=== PATIENT | male | born 1955 | race Caucasian/White ===

== ENCOUNTER 2020-01-14 12:09 | Outpatient (REF) | payer MEDICARE, SELFPAY | END 2020-01-14 12:10 | disposition home or self-care (01) | LOC: HO.LAB 12:09 | PROVIDERS: PCP Internal Medicine Medical Oncology; Visit Provider Internal Medicine | DX: Z20.828 Contact with and (suspected) exposure to other viral communicable diseases (principal) | CPT/HCPCS: C9803; U0003 ==

== ENCOUNTER 2020-02-11 11:25 | Outpatient (REF) | payer MEDICARE, SELFPAY ==
[2020-02-11 12:48] LABS: Glucose Urine UA NEG (NEG); Leukocyte Esterase Urine NEG (NEG); Nitrite Urine NEG (NEG); Urine Blood NEG (NEG); Urine Ketones NEG (NEG); Urine Protein NEG (NEG-TRACE)
[2020-02-11 12:49] LABS: Appearance Urine CLEAR; Color Urine YELLOW
== END 2020-02-11 11:26 | disposition home or self-care (01) ==
LOC: HO.LAB 11:25
PROVIDERS: PCP Internal Medicine Medical Oncology; Visit Provider Internal Medicine Medical Oncology
DX: N40.0 Benign prostatic hyperplasia without lower urinary tract symptoms (principal); R35.0 Frequency of micturition
CPT/HCPCS: 81003; 87086

== ENCOUNTER 2020-03-09 08:32 | Outpatient (REF) | payer MEDICARE, SELFPAY ==
[2020-03-09 10:00] LABS: MANUAL DIFF FLAG NO
[2020-03-09 10:05] LABS: Basophils Percent Auto 0.4 % (0-2); Eosinophils Absolute Auto 0.2 X10*3/uL (0.0-0.4); Eosinophils Percent Auto 3.2 % (0-4); Hematocrit 42.4 % (42-52); Hemoglobin 14.4 g/dl (14.0-18.0); Lymphocytes Absolute Auto 1.6 X10*3/uL (1.2-4.9); Lymphocytes Percent Auto 31.8 % (20-40); Mean Corpuscular Hemoglobin 31.4 pg (27.0-33.0); Mean Corpuscular Volume 92.4 fL (80-98); Mean Platelet Volume 11.6 fL (9.4-12.4); Monocytes Absolute Auto 0.3 X10*3/uL (0.1-1.2); Monocytes Percent Auto 5.6 % (2-11); Platelet Count 177 X10*3/uL (160-400); Red Blood Count 4.59 X10*6/uL (4.60-5.80); Red Cell Distribution Width 12.6 % (11.0-16.0)
[2020-03-09 10:46] LABS: Alanine Aminotransferase 22 U/L (0-40); Albumin Level 4.2 g/dL (3.5-5.0); Alkaline Phosphatase 62 U/L (39-117); Anion Gap 13 (12-20); Aspartate Amino Transferase 24 U/L (5-37); Bilirubin Total 1.1 mg/dL (0.0-1.0); Blood Urea Nitrogen 19 mg/dL (9-16); Calcium 8.8 mg/dL (8.4-10.2); Carbon Dioxide 27 mmol/L (22-29); Chloride 103 mmol/L (96-108); Cholesterol 207 mg/dL; Estimated Glomerular Filt Rate > 60; Glucose Fasting 87 mg/dL (60-99); HDL Cholesterol 39 mg/dL; LDL Cholesterol Calculated 132 mg/dl; Sodium 139 mmol/L (135-145); Total Protein 7.1 g/dL (6.5-8.0); Triglycerides 184 mg/dL
[2020-03-09 11:06] LABS: Prostate Specific Antigen 1.62 ng/mL (<0.05-4.0); Vitamin D 25-OH Total 30.8 ng/mL (>30)
== END 2020-03-09 08:33 | disposition home or self-care (01) ==
LOC: HO.10HDL 08:32
PROVIDERS: Visit Provider Internal Medicine Medical Oncology
DX: Z00.00 Encounter for general adult medical examination without abnormal findings (principal); E78.5 Hyperlipidemia, unspecified; Z12.5 Encounter for screening for malignant neoplasm of prostate
CPT/HCPCS: 36415; 80053; 80061; 82306; 84153; 85025

== ENCOUNTER → 2020-06-14 11:16 | Outpatient (BNVA) | payer MEDICARE, SELFPAY | PROVIDERS: PCP Internal Medicine Medical Oncology; Visit Provider Urology | DX: N52.01 Erectile dysfunction due to arterial insufficiency (principal); N48.6 Induration penis plastica | CPT/HCPCS: 99212 ==

== ENCOUNTER 2020-09-27 07:31 | Outpatient (REF) | payer MEDICARE, SELFPAY | END 2020-09-27 07:32 | disposition home or self-care (01) | LOC: HO.LAB 07:31 | PROVIDERS: PCP Internal Medicine Medical Oncology; Visit Provider Internal Medicine | DX: Z20.822 Contact with and (suspected) exposure to COVID-19 (principal) | CPT/HCPCS: C9803; U0003; U0005 ==

== ENCOUNTER 2021-02-23 08:06 | Outpatient (REF) | payer MEDICARE, SELFPAY ==
[2021-02-23 08:52] LABS: COVID-19 Test Negative (Negative)
== END 2021-02-23 08:07 | disposition home or self-care (01) ==
LOC: HO.LAB 08:06
PROVIDERS: Visit Provider Internal Medicine
DX: Z20.822 Contact with and (suspected) exposure to COVID-19 (principal)
CPT/HCPCS: 87635; C9803

== ENCOUNTER 2021-02-23 09:00 | Outpatient (REF) | payer MEDICARE, SELFPAY ==
[2021-02-23 10:19] LABS: MANUAL DIFF FLAG NO
[2021-02-23 10:35] LABS: Basophils Percent Auto 0.4 % (0-2); Eosinophils Absolute Auto 0.2 X10*3/uL (0.0-0.4); Eosinophils Percent Auto 3.7 % (0-4); Hematocrit 42.9 % (42.0-52.0); Hemoglobin 14.3 g/dl (14.0-18.0); Imm Gran Abs Auto 0.01 X10*3/uL (0.00-0.03); Imm Gran Pct Auto 0.2 % (0.0-0.4); Lymphocytes Absolute Auto 1.8 X10*3/uL (1.2-4.9); Lymphocytes Percent Auto 36.1 % (20-40); Mean Corpuscular HGB Conc 33.3 g/dl (31.0-36.0); Mean Corpuscular Hemoglobin 30.8 pg (27.0-33.0); Mean Corpuscular Volume 92.5 fL (80.0-98.0); Mean Platelet Volume 10.8 fL (9.4-12.4); Monocytes Absolute Auto 0.4 X10*3/uL (0.1-1.2); Monocytes Percent Auto 7.3 % (2-11); Neutrophils Absolute Auto 2.7 x10*3/uL (2.0-8.3); Neutrophils Percent Auto 52.3 % (45-73); Platelet Count 169 X10*3/uL (160-400); Red Blood Count 4.64 X10*6/uL (4.60-5.80); Red Cell Distribution Width 12.5 % (11.0-16.0); White Blood Count 5.1 X10*3/uL (4.8-10.8)
[2021-02-23 11:10] LABS: Alanine Aminotransferase 45 U/L (0-40); Albumin Level 3.9 g/dL (3.5-5.0); Alkaline Phosphatase 58 U/L (39-117); Anion Gap 10 (12-20); Aspartate Amino Transferase 34 U/L (5-37); Bilirubin Total 1.1 mg/dL (0.0-1.0); Blood Urea Nitrogen 11 mg/dL (9-16); Calcium 9.3 mg/dL (8.4-10.2); Carbon Dioxide 30 mmol/L (22-29); Chloride 103 mmol/L (96-108); Cholesterol 210 mg/dL; Estimated Glomerular Filt Rate > 60; Glucose Fasting 89 mg/dL (60-99); HDL Cholesterol 33 mg/dL; LDL Cholesterol Calculated 135 mg/dl; Potassium 4.5 mmol/L (3.3-5.1); Sodium 138 mmol/L (135-145); Total Protein 7.1 g/dL (6.5-8.0); Triglycerides 210 mg/dL
[2021-02-23 11:20] LABS: Prostate Specific Antigen 1.92 ng/mL (<0.05-4.0)
== END 2021-02-23 09:01 | disposition home or self-care (01) ==
LOC: HO.10HDL 09:00
PROVIDERS: Visit Provider Internal Medicine Medical Oncology
DX: E66.3 Overweight (principal); N40.0 Benign prostatic hyperplasia without lower urinary tract symptoms; E78.5 Hyperlipidemia, unspecified; Z12.5 Encounter for screening for malignant neoplasm of prostate
CPT/HCPCS: 36415; 80053; 80061; 84153; 85025

== ENCOUNTER 2022-05-04 09:42 | Outpatient (REF) | payer MEDICARE, SELFPAY ==
[2022-05-04 10:34] LABS: MANUAL DIFF FLAG NO
[2022-05-04 10:42] LABS: Basophils Percent Auto 0.6 % (0-2); Eosinophils Absolute Auto 0.2 X10*3/uL (0.0-0.4); Eosinophils Percent Auto 3.3 % (0-4); Hematocrit 41.5 % (42.0-52.0); Hemoglobin 14.3 g/dl (14.0-18.0); Imm Gran Abs Auto 0.01 X10*3/uL (0.00-0.03); Imm Gran Pct Auto 0.2 % (0.0-0.4); Lymphocytes Absolute Auto 1.7 X10*3/uL (1.2-4.9); Mean Corpuscular HGB Conc 34.5 g/dl (31.0-36.0); Mean Corpuscular Hemoglobin 31.1 pg (27.0-33.0); Mean Corpuscular Volume 90.2 fL (80.0-98.0); Mean Platelet Volume 10.3 fL (9.4-12.4); Monocytes Absolute Auto 0.4 X10*3/uL (0.1-1.2); Monocytes Percent Auto 6.4 % (2-11); Neutrophils Absolute Auto 3.1 x10*3/uL (2.0-8.3); Neutrophils Percent Auto 57.5 % (45-73); Platelet Count 188 X10*3/uL (160-400); Red Cell Distribution Width 12.6 % (11.0-16.0); White Blood Count 5.4 X10*3/uL (4.8-10.8)
[2022-05-04 11:29] LABS: Alanine Aminotransferase 27 U/L (0-40); Alkaline Phosphatase 67 U/L (39-117); Anion Gap 11 (12-20); Aspartate Amino Transferase 24 U/L (5-37); Bilirubin Total 1.3 mg/dL (0.0-1.0); Blood Urea Nitrogen 14 mg/dL (9-16); Calcium 8.8 mg/dL (8.4-10.2); Carbon Dioxide 28 mmol/L (22-29); Chloride 103 mmol/L (96-108); Cholesterol 216 mg/dL; Estimated Glomerular Filt Rate > 60; Glucose Fasting 87 mg/dL (60-99); HDL Cholesterol 34 mg/dL; LDL Cholesterol Calculated 147 mg/dl; Potassium 4.2 mmol/L (3.3-5.1); Sodium 138 mmol/L (135-145); Total Protein 6.9 g/dL (6.5-8.0); Triglycerides 175 mg/dL
[2022-05-04 11:34] LABS: Prostate Specific Antigen 2.32 ng/mL (<0.05-4.0)
== END 2022-05-04 09:43 | disposition home or self-care (01) ==
LOC: HO.10HDL 09:42
PROVIDERS: Visit Provider Internal Medicine Medical Oncology
DX: Z12.5 Encounter for screening for malignant neoplasm of prostate (principal); E66.3 Overweight; N40.0 Benign prostatic hyperplasia without lower urinary tract symptoms; E78.5 Hyperlipidemia, unspecified
CPT/HCPCS: 36415; 80053; 80061; 84153; 85025

== ENCOUNTER 2022-05-14 08:08 | Outpatient (REF) | payer MEDICARE, SELFPAY ==
--- NOTE | ~2022-05-14 | XR_ITS ---
EXAMINATION: X-ray thoracic spine X-ray lumbar spine CLINICAL INFORMATION: Pain, history of falls. COMPARISON: None. TECHNIQUE: Thoracic spine 4 views. Lumbar spine 3 views.. FINDINGS: Thoracic spine: The upper thoracic vertebral bodies are obscured on the lateral projection by overlapping densities. In the visualized thoracic spine, the sagittal alignment is maintained. Mild dextroconvex curvature. Vertebral body heights are maintained. No acute significant vertebral compression deformities evident by x-ray.. Bones appear osteopenic.. Multilevel degeneration in the thoracic spine. No suspicious findings in the visualized lung. Lumbar spine: Mild rightward curvature. Sagittal alignment is maintained. Vertebral body heights are maintained. No acute compression deformity seen. Moderate-severe L5-S1 disc degeneration. Endplate spurring at multiple levels in the lumbar spine. Multilevel facet degeneration. SI joints are intact. Small calcific density projected over the right upper quadrant, may be related to bowel contents. The right renal calculus cannot be excluded. XR/XR lumbar spine 2-3V IMPRESSION: Thoracic spine: 1. Upper thoracic vertebral bodies obscured on the lateral projection. 2. No evidence of significant acute compression deformities of the thoracic spine. 3. Multilevel mild thoracic degenerative changes. 4. Osteopenia limits evaluation. 5. Further evaluation with CT or MRI as clinically warranted. Lumbar spine: No evidence of acute compression deformities. Osteopenia limits evaluation. Lumbar spondylosis. L5-S1 moderate-severe disc degeneration. Further evaluation with MRI as clinically warranted.
--- NOTE | ~2022-05-14 | XR_ITS ---
EXAMINATION: X-ray thoracic spine X-ray lumbar spine CLINICAL INFORMATION: Pain, history of falls. COMPARISON: None. TECHNIQUE: Thoracic spine 4 views. Lumbar spine 3 views.. FINDINGS: Thoracic spine: The upper thoracic vertebral bodies are obscured on the lateral projection by overlapping densities. In the visualized thoracic spine, the sagittal alignment is maintained. Mild dextroconvex curvature. Vertebral body heights are maintained. No acute significant vertebral compression deformities evident by x-ray.. Bones appear osteopenic.. Multilevel degeneration in the thoracic spine. No suspicious findings in the visualized lung. Lumbar spine: Mild rightward curvature. Sagittal alignment is maintained. Vertebral body heights are maintained. No acute compression deformity seen. Moderate-severe L5-S1 disc degeneration. Endplate spurring at multiple levels in the lumbar spine. Multilevel facet degeneration. SI joints are intact. Small calcific density projected over the right upper quadrant, may be related to bowel contents. The right renal calculus cannot be excluded. XR/XR thoracic spine 2V IMPRESSION: Thoracic spine: 1. Upper thoracic vertebral bodies obscured on the lateral projection. 2. No evidence of significant acute compression deformities of the thoracic spine. 3. Multilevel mild thoracic degenerative changes. 4. Osteopenia limits evaluation. 5. Further evaluation with CT or MRI as clinically warranted. Lumbar spine: No evidence of acute compression deformities. Osteopenia limits evaluation. Lumbar spondylosis. L5-S1 moderate-severe disc degeneration. Further evaluation with MRI as clinically warranted.
== END 2022-05-14 08:09 | disposition home or self-care (01) ==
LOC: HO.XRAY 08:08
PROVIDERS: PCP Internal Medicine Medical Oncology; Visit Provider Internal Medicine Medical Oncology
DX: M54.50 Low back pain, unspecified (principal); M54.6 Pain in thoracic spine
CPT/HCPCS: 72070; 72100

== ENCOUNTER 2022-12-24 17:01 | Outpatient (REF) | payer MEDICARE, SELFPAY | END 2022-12-24 17:02 | disposition home or self-care (01) | LOC: HO.LNP 17:01 | PROVIDERS: Visit Provider Internal Medicine Medical Oncology | DX: R07.0 Pain in throat (principal) | CPT/HCPCS: 87070 ==

== ENCOUNTER 2023-02-01 08:31 | Outpatient (REF) | payer MEDICARE, SELFPAY ==
--- NOTE | ~2023-02-01 | MR_ITS ---
EXAMINATION: MR BRAIN WITHOUT CONTRAST CLINICAL INFORMATION: Memory impairment. COMPARISON: Brain MRI dated 07/18/2016. TECHNIQUE: Multiplanar, multisequence imaging of the brain was performed without contrast. FINDINGS: No diffusion abnormalities are identified to suggest an acute or subacute infarct. No mass effect or midline shift is seen. Very mild chronic white matter microangiopathic changes again noted. There is enbr-cw-hjtqoeyi generalized brain parenchymal volume loss with concordant ex vacuo prominence of the ventricles, slightly progressed from prior imaging. No extra-axial fluid collections are seen. The brainstem and cerebellum are normal. The gradient refocused acquisition demonstrates no pathologic magnetic susceptibility artifact to indicate underlying acute or chronic blood products. The craniovertebral junction, marrow signal, and midline structures are normal. The major intracranial flow voids at the level of the [place] are preserved. The dural venous sinus flow voids are maintained. The mastoid air cells and paranasal sinuses are well aerated. MR/MR head/brain wo con IMPRESSION: Jbrm-wq-igpkhncu generalized brain parenchymal volume loss, slightly progressed from prior imaging with stable mild chronic white matter microangiopathic changes. Otherwise, no acute process.
== END 2023-02-01 08:32 | disposition home or self-care (01) ==
LOC: HO.MRI 08:31
PROVIDERS: PCP Internal Medicine Medical Oncology; Visit Provider Psychiatry & Neurology Neurology
DX: G31.84 Mild cognitive impairment of uncertain or unknown etiology (principal)
CPT/HCPCS: 70551

== ENCOUNTER → 2023-04-30 08:59 | Outpatient (REF) | payer MEDICARE, SELFPAY | LOC: HO.SL 08:59 | PROVIDERS: Visit Provider Registered Nurse | DX: G31.84 Mild cognitive impairment of uncertain or unknown etiology (principal); R06.83 Snoring | CPT/HCPCS: 95806 ==

== ENCOUNTER → 2023-04-30 19:00 | Outpatient (BNV) | payer MEDICARE, SELFPAY | PROVIDERS: Visit Provider Internal Medicine | DX: R06.83 Snoring (principal) | CPT/HCPCS: 95806 ==

== ENCOUNTER 2023-05-24 08:46 | Outpatient (REF) | payer MEDICARE, SELFPAY ==
[2023-05-24 09:01] LABS: MANUAL DIFF FLAG NO
[2023-05-24 10:13] LABS: Basophils Percent Auto 0.4 % (0-2); Eosinophils Absolute Auto 0.2 X10*3/uL (0.0-0.4); Eosinophils Percent Auto 3.9 % (0-4); Hematocrit 42.5 % (42.0-52.0); Hemoglobin 14.7 g/dl (14.0-18.0); Imm Gran Abs Auto 0.01 X10*3/uL (0.00-0.03); Imm Gran Pct Auto 0.2 % (0.0-0.4); Lymphocytes Absolute Auto 1.8 X10*3/uL (1.2-4.9); Lymphocytes Percent Auto 33.6 % (20-40); Mean Corpuscular HGB Conc 34.6 g/dl (31.0-36.0); Mean Corpuscular Hemoglobin 31.4 pg (27.0-33.0); Mean Corpuscular Volume 90.8 fL (80.0-98.0); Mean Platelet Volume 10.6 fL (9.4-12.4); Monocytes Absolute Auto 0.3 X10*3/uL (0.1-1.2); Monocytes Percent Auto 5.6 % (2-11); Neutrophils Percent Auto 56.3 % (45-73); Platelet Count 180 X10*3/uL (160-400); Red Blood Count 4.68 X10*6/uL (4.60-5.80); Red Cell Distribution Width 12.9 % (11.0-16.0); White Blood Count 5.3 X10*3/uL (4.8-10.8)
[2023-05-24 10:58] LABS: Prostate Specific Antigen 2.42 ng/mL (<0.05-4.0)
[2023-05-24 12:05] LABS: Alanine Aminotransferase 18 U/L (0-40); Albumin Level 3.9 g/dL (3.5-5.0); Alkaline Phosphatase 58 U/L (39-117); Anion Gap 11 (12-20); Aspartate Amino Transferase 20 U/L (5-37); Blood Urea Nitrogen 14 mg/dL (9-16); Carbon Dioxide 27 mmol/L (22-29); Chloride 106 mmol/L (96-108); Cholesterol 188 mg/dL (<200); Estimated Glomerular Filt Rate > 60; Glucose Fasting 87 mg/dL (60-99); HDL Cholesterol 34 mg/dL (>40); LDL Cholesterol Calculated 122 mg/dL (<100); Sodium 140 mmol/L (135-145); Total Protein 7.2 g/dL (6.5-8.0); Triglycerides 162 mg/dL (<150)
== END 2023-05-24 08:47 | disposition home or self-care (01) ==
LOC: HO.LAB 08:46
PROVIDERS: PCP Internal Medicine Medical Oncology; Visit Provider Internal Medicine Medical Oncology
DX: Z00.00 Encounter for general adult medical examination without abnormal findings (principal); Z12.5 Encounter for screening for malignant neoplasm of prostate; N40.0 Benign prostatic hyperplasia without lower urinary tract symptoms; E78.5 Hyperlipidemia, unspecified
CPT/HCPCS: 36415; 80053; 80061; 84153; 85025

== ENCOUNTER 2023-09-17 14:48 | Outpatient (AMB) | payer MEDICARE, SELFPAY ==
--- NOTE | 2023-09-17 15:07 | A.OFFVIS_ITS ---
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 He denies any inciting event and gradually noted the lump develop. He occasionally has some minor discomfort associated with the lump. The lump does reduce in size when in the supine position. Does note the lump to increase in size with lifting and straining. He denies nausea, vomiting, fever, chills, diarrhea, or constipation. He denies a previous history of hernia surgery. [facility] Medical History Hx of Lyme disease Peyronie's disease Surgical History History of surgery Review of Systems Const All systems reviewed & are unremarkable except as noted in HPI and below Denies chills, Denies fever(s), Denies headache(s), Denies poor appetite and Denies weakness ENT Denies headache(s) Card Denies chest pain, Denies irregular heart rhythm, Denies palpitations and Denies dyspnea Resp Denies cough, Denies excessive phlegm production and Denies dyspnea GI Denies abdominal pain, Denies bloating, Denies change in bowel habits, Denies constipation, Denies heartburn, Denies diarrhea, Denies nausea and Denies vomiting Denies difficulty urinating and Denies urinary frequency Musc Denies back pain, Denies muscle weakness and Denies numbness Skin/Breast Denies changing lesions and Denies unusual bruising Neuro Denies headache(s), Denies numbness, Denies paresthesias and Denies weakness Psych Denies anxiety and Denies depression Endo Denies palpitations Bennie/Lymph Denies lymphadenopathy Physical Exam Vital Signs: Last Vital Signs Pulse 65 09/17/23 15:10 BP 118/67 09/17/23 15:10 BMI result Body Mass Index 25.4 Const General: cooperative and no acute distress Nutritional Appearance: well nourished Orientation/consciousness: patient oriented x3 Limitations: no limitations HEENT Head: Yes normocephalic and Yes atraumatic Ears: hearing grossly normal bilaterally Resp Effort & Inspection: normal respiratory effort, no audible wheezes, no cough and no respiratory distress Cardio Jugular venous distension: no JVD GI Other: Examination in the standing position reveals an easily identified right inguinal hernia which increases with Valsalva maneuvers but is easily reduce with light pressure. No left inguinal hernia or umbilical hernias appreciated. Inspection: Yes normal to inspection Skin Other: Warm, dry, no rash Neuro General: patient oriented x3 Extrem General: Yes no clubbing, cyanosis or edema Assessment & Plan Assessment & Plan (1) Reducible right inguinal hernia: Code(s): K40.90 - Unilateral inguinal hernia, without obstruction or gangrene, not specified as recurrent Category: Medical Plan 68-year-old male patient presenting with a reducible right inguinal hernia. The hernias gradually increasing in size, and causing mild discomfort. On exam noted to have a reducible right inguinal hernia. We discussed repair of the right inguinal hernia with mesh and after discussion of the procedure, risks, and alternatives, he consents to a repair of the right inguinal hernia with mesh. He will be scheduled as a short-stay surgery at his earliest convenience. Coding Level of Care Code New Pt Level 4 (65913) Diagnoses Reducible right inguinal hernia K40.90
[2023-09-17 15:10] VITALS: BP 118/67; PULSE 65; BMI 25.4
== END 2023-09-17 15:35 | disposition home or self-care (01) ==
PROVIDERS: PCP Internal Medicine Medical Oncology; Visit Provider Surgery
DX: K40.90 Unilateral inguinal hernia, without obstruction or gangrene, not specified as recurrent (principal)
CPT/HCPCS: 99204

== ENCOUNTER → 2023-09-17 14:48 | Outpatient (BNVA) | payer MEDICARE, SELFPAY | PROVIDERS: PCP Internal Medicine Medical Oncology; Visit Provider Surgery | DX: K40.90 Unilateral inguinal hernia, without obstruction or gangrene, not specified as recurrent (principal) | CPT/HCPCS: 99202 ==

== ENCOUNTER 2024-05-15 09:20 | Outpatient (REF) | payer MEDICARE, SELFPAY ==
[2024-05-15 09:34] LABS: MANUAL DIFF FLAG NO
--- OUTSIDE RECORDS SUMMARY | 2024-05-15 10:11 | XMS_ITS ---
Author Organization Earl Hightower III, MD Address [address] [place] [address] [address] [place] [address] Care Team Providers Care Driver/Guide Name Role Phone Earl Hightower Primary Care Provider REASON FOR VISIT Message Social History Sex Assigned At : Social History Observation Description Sex Assigned At Male Encounters Encounter Location Date Provider Diagnosis Earl Hightower III, MD [address] [place] [address] [place] [address] 05/14/2024 Earl Hightower Plan Of Treatment Next Appt Details Provider Name:Earl Hightower, 05/18/2024 02:00:00 PM, [address] [place] [address] [place], [address], Progress Notes * James ELLISDOB:1955 ( 68 yo M)Acc No.[id number]:05/14/2024 Patient:?James ELLIS :1955???Age:68 Y???Sex:Male Address:[address] [place] [address] [place], [address] * true * Date:? Generated for Printi ng/Faxing/eTransmitting on:?05/15/2024 10:11 AM EDT
--- OUTSIDE RECORDS SUMMARY | 2024-05-15 10:11 | XMS_ITS ---
Author Organization Earl Hightower III, MD Address [address] [place] [address] [place] [address] Care Team Providers Care Button Pusher Name Role Phone Earl Hightower Primary Care Provider [phone] Allergies Allergen (clinical drug ingredient) Drug/Non Drug [...] Date Provider Diagnosis Earl Hightower III, MD [address] [place] [address] [place] [address] 11/19/2023 Earl Hightower BPH (benign prostati c hyperplasia) N40.0 ; [...] May, Reason: An nual Visit Provider Name:Earl Hightower, 05/18/2024 02:00:00 PM, [address] [place] [address] DIN[address] WILKES, [place], [address], Progress Notes * Jignesh ELLIS:1955 ( 68 yo M)Acc No.[id number]:11/19/2023 Progress Notes Patient:James HERNANDEZ Provider:?Earl Hightower MD :1955???Age:68 Y???Sex:Male Berry e:11/19/2023 Address:[address] [place], [place] [id number] Subjective: * Chief Complaints: * ???Follow Up * HPI: ???COVID-19 Screening:?Questions?Have you experienced fever, chills, cough, sore throat, shortness of breath, difficulty breathing, muscle aches, loss of taste or smell??No ?Have you been exposed to the virus within the last 10 days??No ?Have you travelled internationally in the last 10 days??No ?Have you been exposed to COVID-19 in the past??Yes ???:? The patient, a 68-year-old male, has been [...] showing no sign of prostate cancer. * ROS:?General/Constitutional:?pain?only normal aches and pains.?Chills?denies.?Fatigue?admits.?Fever?denies.?ENT:?Decreased hearing?denies.?Respiratory:?Cough?denies.?Cardiovascular:?Chest pain with exertion?denies.?Dyspnea on exertion?denies.?Shortness of breath?denies.?Gastrointestinal:?Constipation?occasional.?Decreased appetite?denies.?Diarrhea?denies.?Heartburn?denies.?Nausea?denies.?Rectal bleeding?denies.?Vomiting?denies.?Hematology:?bruising?denies.?petechiae?denies.?Swollen glands?none have been noted.?Genitourinary:?Frequent urination?once a night.?Musculoskeletal:?Muscle aches?denies.?Painful joints?denies.?Sciatica?denies.?Weakness?denies.?Skin:?Itching?denies.?Rash?denies.?Skin lesion(s)?denies.?Neurologic:?Difficulty speaking?denies.?Dizziness?denies.?Headache?denies.?Low back pain?denies.?Psychiatric:?Depressed mood?denies.? * Medical History:? * Surgical History:?Deviated s eptum 1986both elbow surgery 1985, 1978fracture right ulnar 1980spenile fracture 2016No history * Hospitalization/Major Diagno stic Procedure:?No history * Family History:?Father: dece ased 76 yrs, lung cancer.?Mother: 36 yrs, Automobile accident.?4 brother(s) , 1 sister(s) . .? His oldest brother has had a myocardial [...] addiction or substance use disorder. * Social History:?Tobacco Use:?Tobacco Use/Smoking?Patient is a?former smoker ?How long has it been since you last smoked??> 10 years ?Additional Findings: Tobacco Non-User?Ex-cigarette smoker ???He was born in [place], [place] and now lives in [facility]. 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 He has been to his , Dariusz, for 6 years. She has 2 children by another marriage. * Medications:?TakingEPINEPHri ne 0.3 MG/0.3ML Solution Auto-injector as directed Injection use once prn with beesting Medication List reviewed and reconciled with the patientTaking EPINEPHrine 0.3 MG/0.3ML Solution Auto-injector as directed Injection use once prn with beesting Medication List reviewed and reconciled with the patient * Allergies:?Bee Stingno[Aller gies Verified] Objective: * Vitals:?Ht: 70, Wt:179, BMI: 25.68, BP:128/78, HR:63, Temp:98.1, Wt-k.19. * Examination: ???General Examination: ?GENERAL APPEARANCE:?pleasant, well nourished, well developed, in no acute distress, calm and relaxed, overweight, man.?HEAD:?atraumatic, normocephalic.?EYES:?eomi, perrla, anicteric, conjugate.?EARS:?normal.?NOSE:?septum intact.?ORAL CAVITY:?normal, unremarkable.?NECK/THYROID:?no jugular venous distention, no carotid bruit, thyroid normal.?LYMPH NODES:?no enlarged lymph nodes,spleen normal.?SKIN:?no suspicious lesions, anicteric.?HEART:?no clicks, gallops, murmurs, or rubs, regular rhythm, S1, S2 normal, no s3, or vascular bruits.?LUNGS:?clear to auscultation .?BREASTS:??no masses palpable bilaterally.?ABDOMEN:?bowel sounds normal, no ascites, no organomegaly, no mass, overweight.?RECTAL EXAM:?not examined.?MUSCULOSKELETAL:?extremities unremarkable, no clubbing, cyanosis or edema.?PERIPHERAL PULSES:?normal.?NEUROLOGIC:?alert and oriented, cranial nerves 2-12 grossly intact, deep tendon reflexes 2+ symmetrical, motor strength normal upper and lower extremities, sensory exam intact, Memory appears to be normal.?PSYCH:?alert, oriented.? Assessment: * Assessment: 1.?BPH (benign prostatic hyp erplasia) - N40.0 (Primary)???Notes :He says he rises from sleep about once a night sometimes twice depending upon fluid intake.? We reviewed lifestyle modifications he could make to reduce nocturia.???2.?Hyperlipidemia - E78.5???Notes :His lipids have been stable.? A fasting lipid profile has been ordered prior to his next visit.???3.?Former smoker - Z87.891???Notes :He is highly motivated not to smoke. We discussed strategies for maintenance of abstinence in times of stress and illness.???4.?Hernia - K46.9???Notes :He has seen a surgeon about her running wall hernia.? The he has decided not to have the repair done at this time.???5.?Sleep apnea, unspecified type - G47.30???Notes :His sleep study shows he does not have sleep apnea. This problem will be removed from the list.??? Plan: * Treatment: 2.?Hyperlipidemia?LAB: PROFILE, FASTING (COMPREHENSIVE METABOLIC) ?LAB: PSA, TOTAL ?LAB: CBC w DIFF ?LAB: Lipid Panel 3.?Others? Continue EPINEPHrine Solution Auto-injector, 0.3 MG/0.3ML, as directed, Injection, use once prn with beesting.?? * Procedure Codes:? * Preventive Medicine:? ??Counseling:?Care goal follow-up plan:?Counseling for abnormal BMI given?Yes ?Above Normal BMI Follow-up?Dietary management education, guidance, and counseling ?Smoking/Tobacco Use?Patient counseled on the dangers of tobacco use and urged to quit.?11/19/2023 * Follow Up:?May (Reason: An nual Visit) * Images: * Sign off status: Completed true * Provider:?Earl Hightower MD Date:?09/2023 Generated for Printi ng/Fatristag/eTransmitting on:?05/15/2024 10:11 AM EDT History and Physical Notes * HPI (History [...]
--- OUTSIDE RECORDS SUMMARY | 2024-05-15 10:11 | XMS_ITS | Data Portability ---
Author Organization [place] - [facility], Allergy Address [address] [place] [address] Assessment Encounter Date Assessment Date Assessment LastModified by Organization Details LastModified Time 07/02/2023 07/02/2023 Recommend to continue to monitor his hearing as requested by MD or sooner if changes arise. FU with Dr Sorensen as scheduled. [email or web address] Not available 07/02/2023 14:59:53 07/02/2023 07/02/2023 Audiometric testing reviewed as noted below, which is consistent with mild presbycusis. Not enough hearing loss to warrant amplification. Did recommend some communication techniques to help with his . Recommend follow-up audiogram in 2 to 3 years [email or web address] Not available 07/02/2023 15:21:50 Plan of Treatment Reminders Order Date Submit Date Provider Last Modified By Organization Details Last Modified Time Details Appointments None record ed. Lab None record ed. Referral None record ed. Procedures None record ed. Surgeries None record ed. Imaging None record ed. Medication Orders None record ed. Patient TargetsNo targets recorded. Patient InstructionsNo instructions recorded. Reason for Referral None Reported. Results Created Date Observation Date Name Description Value Unit Range Abnormal Flag Note LastModifiedBy Organization Detail LastModifiedTime 10/01/19 24 03/26/2018 imagi ng/di agnos tic resul t No observ ation record ed. [email or web address] Not Available 21:25:07 10/01/19 24 07/02/2023 imagi ng/di agnos tic resul t No observ ation record ed. [email or web address] Not Available 21:25:17 Result Notes None recorded. Problems Name Problem SNOMED Code Status Onset Date Resolution Date Notes Provider Name and Address Organization Details Recorded Time Dizziness and giddiness 536817489 Active 2018 Dizziness and giddiness ; Note: Date Diagnosed : 03/26/2018 2:58 PM (R42) Not Available [facility] 4 02:39:49 Bilateral tinnitus 03347700416 02 Active 2018 Tinnitus, bilateral ; Note: Date Diagnosed : 03/26/2018 2:58 PM (H93.13) Not Available [facility] 4 02:39:55 Benign paroxysma l positiona l vertigo 711789098 Active 2018 Benign paroxysma l vertigo, unspecifi ed ear; Note: Date Diagnosed : 03/26/2018 2:58 PM (H81.10) Not Available [facility] 4 02:39:56 Sensorine ural hearing loss of bilateral ears 704692926 Active 2023 PAOLA ERNANDEZ, [address], [address] , [facility] - [facility] 4 14:56:17 Problem Notes None recorded. Procedures Surgical History Date Name Laterality Status Provider Name and Address Organization Details Recorded Time 4 Comp Audio with Tymps (72952 & 05107) completed PAOLA ERNANDEZ, [address], [address], [place] - [facility] 07/02/2023 14:56:11 procedure on nose completed Cecilia Reveles [place] - [facility] 07/02/2023 15:07:22 procedure on elbow completed Cecilia Reveles [place] - [facility] 07/02/2023 15:07:29 Imaging Results Imaging Date Name Status [facility] Details LastModified Time 03/26/2018 imaging/diag nostic result completed Information not available 10/01/2023 21:25:07 07/02/2023 imaging/diag nostic result completed Information not available 10/01/2023 21:25:17 Procedure Notes None recorded. Medical Equipment None Reported. Allergies No known drug allergies Medications Name Sig Start Date Stop Date Status Note LastModified by Organization Details LastModified Time amoxicillin 500 mg tablet TAKE 1 TABLET BY MOUTH EVERY 8 HOURS FOR 7 DAYS active Not Available Not Available No t Available Vitals Date Recorded Body height Body mass index (BMI) Body weight Provider Name and Address Organization Details Last Updated DateTime 07/02/2023 181.61 cm 25.4 kg/m2 09790.59 g Cecilia Reveles [place] - [facility] 07/02/2023 15:04:21 Social History None recorded. Functional Status None recorded. Mental Status None recorded. Family History Nothing Reported. Medical History No medical history recorded. Past Encounters Encounter ID Performer Location Encounter Start Date Encounter Closed Date Diagnosis/Indication Diagnosis SNOMED-CT Code Diagnosis ICD10 Code Diagnosis Note [id number] GARO SORENSEN MD [facility] [address] [address] 07/02/2023 13:58:16 07/02/2023 15:19:24 Bilateral tinnitus 3532182765 102 H93.13 Today we discussed the pathophysi ology of tinnitus and the absence of consistent ly successful pharmacolo gic treatments for tinnitus. We discussed masking strategies to decrease awareness of the tinnitus, including using a white noise machine, music, or television . We discussed how exposure to loud noise can worsen tinnitus so I recommende d hearing protection . We also discussed other ways to potentiall y help reduce awareness of tinnitus including avoidance of caffeine, salty meals and NSAIDs.In light of the underlying sensorineu ral hearing loss, the patient may want to consider amplificat ion. This would not only help with hearing, but can also be instrument al in acting as a masking source to help reduce the awareness of tinnitus. Sensorineu ral hearing loss of bilateral ears 887113237 H90.3 Audiologic al evaluation results: Right ear: {{Normal auditory thresholds Normal sloping at Normal sloping at 3khz to a mild to moderate #}} {{ SNHL* C HL MHL }} with {{excellen t* good fa ir poor no t measurable }} speech discrimina tion. Left ear: {{Normal auditory thresholds Normal sloping at Normal sloping at 3khz to a mild to moderate #}} {{ SNHL* C HL MHL }} with {{excellen t* good fa ir poor no t measurable }} speech discrimina tion. Tympanomet ry: Right Ear:{{Type A Type As* Type Ad Type C Type C, shallow & rounded Ty pe B Type B with large volume Cou ld not maintain a hermetic seal}} Left Ear:{{Type A Type As* Type Ad Type C Type C, shallow & rounded Ty pe B Type B with large volume Cou ld not maintain a hermetic seal}} [id number] TIM TURNER [facility] [address] [place] [address] 07/02/2023 14:55:07 07/08/2023 18:01:22 Sensorineural hearing loss of bilateral ears 771944025 H90.3 Audiologic al evaluation results: Right ear: {{Normal auditory thresholds Normal sloping at Normal sloping at 3khz to a mild to moderate #}} {{ SNHL* C HL MHL }} with {{excellen t* good fa ir poor no t measurable }} speech discrimina tion. Left ear: {{Normal auditory thresholds Normal sloping at Normal sloping at 3khz to a mild to moderate #}} {{ SNHL* C HL MHL }} with {{excellen t* good fa ir poor no t measurable }} speech discrimina tion. Tympanomet ry: Right Ear:{{Type A Type As* Type Ad Type C Type C, shallow & rounded Ty pe B Type B with large volume Cou ld not maintain a hermetic seal}} Left Ear:{{Type A Type As* Type Ad Type C Type C, shallow & rounded Ty pe B Type B with large volume Cou ld not maintain a hermetic seal}} Health Concerns Section Related Observation LastModified by Organization Detai ls LastModified Time None Recorded Concern Status LastModified by Organization Details LastModified Time None Recorded Advance Directives Directive None Recorded Payers Encounter Date Sequence Insurance Name Policy Number Policy Clarke Covered Member ID Clarke Member ID Guarantor Name 07/02/2023 1 [place] [employer] James Alberto [id number] James Alberto 07/02/2023 2 [place] PPO) [id number] James Alberto [id number] James Alberto 07/02/2023 1 [place] [employer] James Alberto [id number] James Alberto 07/02/2023 2 [place] PPO) [id number] James Alberto [id number] James Alberto Notes Date Note Type Note Provider Name and Address Organization Details Recorded Time 07/02/2023 text/html Patient comes in today for evaluation of his hearing. He thinks his hearing is fine, but his has been noting him not paying attention to her. He had audiometric testing few years ago which showed very mild high-frequency sensorineural hearing loss. Patient does have low-level high-pitched tinnitus noticeable in quiet environments. GARO SORENSEN MD [address] [place] [address], [phone] - [facility] 07/02/2023 15:22:28
--- OUTSIDE RECORDS SUMMARY | 2024-05-15 10:11 | XMS_ITS | Patient Health Record ---
Author Organization Earl Hightower III, MD Address [address] [address] Care Team Providers Care Script Girl Name Role Phone Earl Hightower Primary Care Provider Allergies Allergen (clinical drug ingredient) Drug/Non Drug Allergy documented on EMR Reaction Allergy Type Onset Date Status Bee Sting Unknown Allergy Active Results Component Value Reference Range Notes URINE DIP STICK Reviewed date:05/17/2023 01:20:16 PM Interpretation: Performing Lab: Notes/Report: SG 1.020 1.005 - 1.025 pH 5.0 5.0 - 9.0 JACQUI Negative Negative - NIT Negative Negative - PRO 15 Negative - Trace GLU Negative Negative - KET Negative Negative - UBG 0.2 0.1 - 1.8 JAKY Negative 0.2 - 1.3 BLD Negative Negative - Lipid Panel Reviewed date:11/11/2023 08:42:34 AM Interpretation: Performing Lab:[facility], [address] [phone] Notes/Report: Triglycerides 162 <150 mg/dL Desirable Triglyceride: less than 150 mg/dL Borderline High Triglyceride 150-199 mg/dL High Triglyceride: 200-499 mg/dL Very High Triglyceride: greater than or equal to 5OO mg/dL Cholesterol 188 <200 mg/dL Desirable Cholesterol: less than 200 mg/dL Borderline High Cholesterol: 200-239 mg/dL High Cholesterol: greater than 239 mg/dL LDL Cholesterol Calculated 122 <100 mg/dL Desirable LDL: less than 100 mg/dL Near Optimal/Above Optimal LDL: 110-129 mg/dL Borderline High LDL: 130-159 mg/dL High LDL: 160-189 mg/dL Very High LDL: greater than or equal to 190 mg/dL HDL Cholesterol 34 >40 mg/dL Desirable HDL: greater than 40 mg/dL Note: This HDL assay may give artificially low results in patients with liver disease. Complete Blood Count Auto Di ff Reviewed date:11/11/2023 08:42:34 AM Interpretation: Performing Lab:[facility], [address] [place] [phone] Notes/Report: White Blood Count 5.3 4.8-10.8 X10*3/uL Red Blood Count 4.68 4.60-5.80 X10*6/uL Hemoglobin 14.7 14.0-18.0 g/dl Hematocrit 42.5 42.0-52.0 % Mean Corpuscular Volume 90.8 80.0-98.0 fL Mean Corpuscular Hemoglobin 31.4 27.0-33.0 pg Mean Corpuscular HGB Conc 34.6 31.0-36.0 g/dl Red Cell Distribution Width 12.9 11.0-16.0 % Platelet Count 180 160-400 X10*3/uL Mean Platelet Volume 10.6 9.4-12.4 fL Neutrophils Percent Auto 56.3 45-73 % Imm Gran Pct Auto 0.2 0.0-0.4 % Lymphocytes Percent Auto 33.6 20-40 % Monocytes Percent Auto 5.6 2-11 % Eosinophils Percent Auto 3.9 0-4 % Basophils Percent Auto 0.4 0-2 % NRBC Pct Auto 0.0 0.0-0.2 /100WBC Neutrophils Absolute Auto 3.0 2.0-8.3 x10*3/u L Imm Gran Abs Auto 0.01 0.00-0.03 X10*3/uL Lymphocytes Absolute Auto 1.8 1.2-4.9 X10*3/u L Monocytes Absolute Auto 0.3 0.1-1.2 X10*3/uL Eosinophils Absolute Auto 0.2 0.0-0.4 X10*3/u L Basophils Absolute Auto 0.0 0.0-0.2 X10*3/uL NRBC Abs Auto 0.000 0.0-0.012 X10*3/uL Comprehensive [place]. Panel Fa st Reviewed date:11/11/2023 08:42:34 AM Interpretation: Performing Lab:[facility], [address] [place] [phone] Notes/Report: Sodium 140 135-145 mmol/L Potassium 4.0 3.3-5.1 mmol/L Chloride 106 96-108 mmol/L Carbon Dioxide 27 22-29 mmol/L Anion Gap 11 12-20 Blood Urea Nitrogen 14 9-16 mg/dL Creatinine 0.94 0.5-1.4 mg/dL Estimated Glomerular Filt Rate > 60 NOTE: For -Bhut[place] individuals, multiply the result by 1.210. Chronic Kidney Disease: Estimated GFR < 60 mL/min/1.73m2 Severe Kidney Disease: Estimated GFR < 15 mL/min/1.73m2 Glucose Fasting 87 60-99 mg/dL Calcium 9.0 8.4-10.2 mg/dL Bilirubin Total 1.0 0.0-1.0 mg/dL Aspartate Amino Transferase 20 5-37 U/L Alanine Aminotransferase 18 0-40 U/L Total Protein 7.2 6.5-8.0 g/dL Albumin Level 3.9 3.5-5.0 g/dL Alkaline Phosphatase 58 39-117 U/L Prostate Specific Antigen Reviewed date:11/11/2023 08:42:34 AM Interpretation: Performing Lab:[facility], [address] [place] [phone] Notes/Report: Prostate Specific Antigen 2.42 <0.05-4.0 ng/mL PSA methodology: Brown Alinity i Chemiluminescent Microparticle Immunoassay (CMIA) Reason For Referral Reason Consult and Treat Symptomatic Right Inguinal Hernia Diagnosis 1 Hernia (K46.9) Referral Organization Earl Hightower III, MD Referring Provider First Name Earl Referring Provider Last Name aKtja Referring Provider Speciality Internal M edicine Referred Provider James Jacques Referred Provider Specialty General Surg tyrone General Notes Leonor Coker 09/02 10:48:40 AM > Referral faxed with progress note and demos Referral Priority Routine Referral Appointment Date 09/17/2023 Medications Medication SIG (Take, Route, Frequency, Duration) Notes Start Date End Date Status EPINEPHrine 0.3 MG/0.3ML as directed Inj ection use once prn with beesting 03/08/2020 Active Immunizations Vaccine Route Administration Date Status Comme nts COVID PFIZER Unknown 04/09/2020 Administered COVID PFIZER Unknown 07/15/2021 Administered COVID PFIZER Unknown 03/17/2020 Administered COVID PFIZER Unknown 12/31/2020 Administered COVID- 19 Vaccine Unknown 12/17/2021 Administered SHINGRIX Unknown 02/16/2023 Administered SHINGRIX Unknown 11/24/2022 Administered Tetanus and Diphtheria Toxoids Adsorbed IM Intramuscular [...] Additional Findings: Tobacco Non-User Ex-cigaret te smoker Alcohol Screen Question Answer Notes Did you have a drink containing alcohol in the p ast year? No Points 0 Interpretation Negative Problems Problem Type SNOMED Code ICD Code Onset Dates Problem Status W/U Status Risk Notes Problem 4994942 Former smoker (Z87.891) Active confirmed He is highly motivated not to smoke. We discussed strategies for maintenance of abstinence in times of stress and illness. Problem 70754622 Hyperlipidemia (E78.5) Active confirmed His lipids have been stable. A fasting lipid profile has been ordered prior to his next visit. Problem 565597616 Overweight (E66.3) Active confirmed His body mass index is 26. We discussed her weight loss strategy. I recommended losing one half of a pound per week to regular exercise and a diet restricted in fat calories and sodium. Problem 565108378 BPH (benign prostatic hyperplasia) (N40.0) Active confirmed He says he rises from sleep about once a night sometimes twice depending upon fluid intake. We reviewed lifestyle modifications he could make to reduce nocturia. Problem 562441666 Erectile dysfunction (N52.9) Active confirmed This problem has been addressed. This medication was effective. Problem 68154701 Hernia (K46.9) Active confirmed He has seen a surgeon about her running wall hernia. The he has decided not to have the repair done at this time. Problem Hearing loss (77669268) Hearing loss, unspecified hearing loss type, unspecified laterality (H91.90) Active confirmed His hearing loss is unchanged. Declined an offer referral to ENT for audiology. Vital Signs Heart Rate 59 /min 12/31/2023 Temperature 97.4 degrees Fahrenheit 12/31/2023 Blood pressure diastolic 78 mm Hg 12/31/2023 Height 70 in 12/31/2023 Blood pressure systolic 117 mm Hg 12/31/2023 Weight 182 lbs 12/31/2023 BMI 26.11 kg/m2 12/31/2023 Encounters Encounter Location Date Provider Diagnosis Earl Hightower III, MD [address] [place] [address] [address] [place] [address] 05/17/2023 Earl Hightower BPH (benign prostati c hyperplasia) N40.0 ; Hyperlipidemia E78.5 ; Former smoker Z87.891 ; Overweight E66.3 ; Sleep apnea, unspecified type G47.30 ; Hearing loss, unspecified hearing loss type, unspecified laterality H91.90 and Hematochezia K92.1 Earl Hightower III, MD [address] [place] [address] [place] [address] 08/27/2023 Earl Hightower Right inguinal herni a K40.90 ; Former smoker Z87.891 ; Overweight E66.3 ; BPH (benign prostatic hyperplasia) N40.0 and Hyperlipidemia E78.5 Earl Hightower III, MD [address] [place] [address] [place] [address] 11/19/2023 Earl Hightower BPH (benign prostati c hyperplasia) N40.0 ; Hyperlipidemia E78.5 ; Former smoker Z87.891 ; Hernia K46.9 and Sleep apnea, unspecified type G47.30 Earl Hightower III, MD [address] [place] [address] [place] [address] 12/31/2023 Earl Hightower Immunization, tetanu s toxoid Z23 ; Overweight E66.3 ; Open wound T14.8XXA and Former smoker Z87.891 Earl Hightower III, MD [address] [place] [address] [place] [address] 07/05/2023 Earl Hightower Helicobacter pylori (H. pylori) A04.8 Earl Hightower III, MD [address] [place] [address] [address] [place] [address] 07/23/2023 Earl Hightower H. pylori infection A04.8 Earl Hightower III, MD [address] [place] [address] [place] [address] 07/30/2023 Earl Hightower III, MD [address] [place] [address] [address] [place] [address] 05/14/2024 Earl Hightower Assessments Encounter Date Diagnosis (ICD Code) Assessment Notes T reatment Notes Treatment Clinical Notes 05/17/2023 Hyperlipidemia (ICD-10 - E78.5) Conference of blood work with a fasting lipid profile and a PSA has been ordered. 05/17/2023 BPH (benign prostatic hyperplasia) (ICD-10 - N40.0) He rises from sleep once or twice a night depending upon fluid intake. We have discussed lifestyle modification as an effective way to reduce nocturia. 08/27/2023 Former smoker (ICD-10 - Z87.891) He is highly motivated not to smoke. We discussed strategies for maintenance of abstinence in times of stress and illness. 08/27/2023 Right inguinal hernia (ICD-10 - K40.90) His discomfort has become a nuisance and he would like to have the hernia repaired. He has been referred to general surgery for this purpose. I find no contraindication to surgery and he is given medical clearance. 11/19/2023 Hyperlipidemia (ICD-10 - E78.5) His lipids have been stable. A fasting lipid profile has been ordered prior to his next visit. 11/19/2023 BPH (benign prostatic hyperplasia) (ICD-10 - N40.0) He says he rises from sleep about once a night sometimes twice depending upon fluid intake. We reviewed lifestyle modifications he could make to reduce nocturia. 12/31/2023 Overweight (ICD-10 - E66.3) His body mass index is 26. We discussed her weight loss strategy. I recommended losing one half of a pound per week to regular exercise and a diet restricted in fat calories and sodium. 12/31/2023 Immunization, tetanus toxoid (ICD-10 - Z23) He received a tetanus vaccine today without difficulty. 05/17/2023 Former smoker (ICD-10 - Z87.891) He is [...] diet restricted in fat calories and sodium. 11/19/2023 Former smoker (ICD-10 - Z87.891) He is highly motivated not to smoke. We discussed strategies for maintenance of abstinence in times of stress and illness. 12/31/2023 Open wound (ICD-10 - T14.8XXA) The area on the right third finger was cleaned and bandaged. He was given instructions in care. 07/05/2023 Helicobacter pylori (H. pylori) (ICD-10 - A04.8) 07/23/2023 H. pylori infection (ICD-10 - A04.8) 05/17/2023 Overweight (ICD-10 - E66.3) His body mass [...] as an effective way to reduce nocturia. 11/19/2023 Hernia (ICD-10 - K46.9) He has seen a surgeon about her running wall hernia. The he has decided not to have the repair done at this time. 12/31/2023 Former smoker (ICD-10 - Z87.891) He is highly motivated not to smoke. We discussed strategies for maintenance of abstinence in times of stress and illness. 05/17/2023 Sleep apnea, unspecified type (ICD-10 - G47.30) His sleep study shows he does not have sleep apnea. This problem will be removed from the list. 08/27/2023 Hyperlipidemia (ICD-10 - E78.5) Conference of blood work with a fasting lipid profile and a PSA has been ordered. 11/19/2023 Sleep apnea, unspecified type (ICD-10 - G47.30) His sleep study shows he does not have sleep apnea. This problem will be removed from the list. 05/17/2023 Hearing loss, unspecified hearing loss type, unspecified laterality (ICD-10 - H91.90) His hearing loss is unchanged. Declined an offer referral to ENT for audiology. 05/17/2023 Hematochezia (ICD-10 - K92.1) He has recently had some bright red blood with bowel movements. The rectal examination is unremarkable and the stool is brown and guaiac negative. Observation will commence. Plan Of Treatment Pending Test Test Name Order Date GUAIAC, SINGLE SPECIMEN 03/08/2020 URINE DIP STICK 03/08/2020 PROFILE, FASTING (COMPREHENSIVE METABOLI C) 01/17/2021 PROFILE, FASTING (COMPREHENSIVE METABOLI C) 03/08/2020 PROFILE, FASTING (COMPREHENSIVE METABOLI C) 09/02/2017 PROFILE, FASTING (COMPREHENSIVE METABOLI C) 05/17/2023 PROFILE, FASTING (COMPREHENSIVE METABOLI C) 11/02/2021 PROFILE, FASTING (COMPREHENSIVE METABOLI C) 02/18/2019 PROFILE, FASTING (COMPREHENSIVE METABOLI C) 04/18/2021 PROFILE, FASTING (COMPREHENSIVE METABOLI C) 11/19/2023 PROFILE, FASTING (COMPREHENSIVE METABOLI C) 06/04/2018 PROFILE, FASTING (COMPREHENSIVE METABOLI C) 02/12/2018 LIPID PANEL 06/04/2018 LIPID PANEL 02/12/2018 LIPID PANEL 03/08/2020 LIPID PANEL 09/02/2017 LIPID PANEL 02/18/2019 PSA, TOTAL 04/18/2021 PSA, TOTAL 02/18/2019 PSA, TOTAL 11/19/2023 PSA, TOTAL 06/04/2018 PSA, TOTAL 01/17/2021 PSA, TOTAL 02/12/2018 PSA, TOTAL 05/17/2023 PSA, TOTAL 03/08/2020 PSA, TOTAL 09/02/2017 PSA, TOTAL 11/02/2021 CBC w DIFF 04/18/2021 CBC w DIFF 02/18/2019 CBC w DIFF 11/19/2023 CBC w DIFF 06/04/2018 CBC w DIFF 01/17/2021 CBC w DIFF 02/12/2018 CBC w DIFF 03/08/2020 CBC w DIFF 09/02/2017 CBC w DIFF 11/02/2021 HELICOBACTER PYLORI IGG (H PYLORI IGG) 0 07/05/2023 URINALYSIS (UA) 02/11/2020 ETTA-GASPAR VIRUS PROFILE (EBV) 019 URINE CULTURE 02/11/2020 VITAMIN D 25-OH TOTAL 03/08/2020 CBC WITH AUTO DIFF 05/17/2023 Lipid Panel 11/02/2021 Lipid Panel 04/18/2021 Lipid Panel 11/19/2023 Lipid Panel 01/17/2021 Throat Culture 12/26/2022 H Pylori Breath Test 07/23/2023 Next Appt Details Provider Name:Earl Hightower, 05/18/2024 02:00:00 PM, [address] [place] [address] [address], [place], [address], Insurance Providers Payer Name Payer Address Payer Phone Subscriber Number Group Number Insured Name Patient Relationship to Insured Coverage Start Date Coverage End Date [facility] [address] [place], [place] [id number] [phone] [id number] James Alberto Self - patient is the insured MEDICARE NGS [address] [place] [address] [id number] James Alberto Self - patient is the insured Medical (General) History Medical History History ICD Code fracture right ulnar fracture penis December 2015, untreated erectile dysfunction skin lesion anterior left shoulder former smoker history of lyme disease 2012 Surgical History Surgery Date(Month/Year) Deviated septum 1985 both elbow surgery 1985, 1978 fracture right ulnar 1979's penile fracture 2015 No history Hospitalization History Reason Date(Month/Year) No history
--- OUTSIDE RECORDS SUMMARY | 2024-05-15 10:11 | XMS_ITS ---
Author Organization Earl Hightower III, MD Address [address] [place] [address] Care Team Providers Care Fitness And Wellness Coordinator Name Role Phone Earl Hightower Primary Care [...] Date Provider Diagnosis Earl Hightower III, MD [address] [place] [address] [place] [address] 12/31/2023 Earl Hightower Immunization, tetanu s toxoid [...] May, Reason: OV, Regular check-up Provider Name:Earl Hightower, 05/18/2024 02:00:00 PM, [address] [place] [address] [address], [place], [address], Progress Notes * James ELLISDOB:1955 ( 68 yo M)Acc No.[id number]:12/31/2023 Patient:?James ELLIS Provider:?Earl Hightower MD :1955???Age:68 Y???Sex:Male Berry e:12/31/2023 Address:[address] [id number] Subjective: * Chief Complaints: * ???Right hand middle finger laceration x 2 daysHearing lossBenign prostatic hypertrophyHyperlipidemia * HPI: ???COVID-19 Screening:?Questions?Have you experienced fever, chills, cough, sore throat, shortness of breath, difficulty breathing, muscle aches, loss of taste or smell??No ?Have you been exposed to the virus within the last 10 days??No ?Have you travelled internationally in the last 10 days??No ?Have you been exposed to COVID-19 in the past??Yes ???:? The patient, a 68-year-old male, presented with [...] of metal that caused the injury. * ROS:?General/Constitutional:?pain?only normal aches and pains.?Chills?denies.?Fatigue?admits.?Fever?denies.?ENT:?Decreased hearing?in both ears.?Respiratory:?Cough?denies.?Cardiovascular:?Chest pain with exertion?denies.?Dyspnea on exertion?denies.?Shortness of breath?denies.?Gastrointestinal:?Constipation?occasional.?Decreased appetite?denies.?Diarrhea?denies.?Heartburn?denies.?Nausea?denies.?Rectal bleeding?denies.?Vomiting?denies.?Hematology:?bruising?denies.?petechiae?denies.?Swollen glands?none have been noted.?Genitourinary:?Frequent urination?once a night.?Musculoskeletal:?Muscle aches?denies.?Painful joints?denies.?Sciatica?denies.?Weakness?denies.?Skin:?Itching?denies.?Rash?denies.?Skin lesion(s)?denies.?Neurologic:?Difficulty speaking?denies.?Dizziness?denies.?Headache?denies.?Low back pain?denies.?Psychiatric:?Depressed mood?denies.? * Medical History:? * Surgical History:?Deviated s eptum 1986both elbow surgery 1985, 1978fracture right ulnar 1980'spenile fracture 2015No history * Hospitalization/Major Diagno stic Procedure:?No history [...] Tobacco Non-User?Ex-cigarette smoker ???He was born in [place], [place] and now lives in [facility]. 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 * Examination: ???General Examination: ?GENERAL APPEARANCE:?pleasant, well [...] EXAM:?not examined.?MUSCULOSKELETAL:?extremities unremarkable, no clubbing, cyanosis or edema, Small laceration right third finger without infection.?PERIPHERAL PULSES:?normal.?NEUROLOGIC:?alert and oriented, cranial nerves 2-12 grossly intact, deep tendon reflexes 2+ symmetrical, motor strength normal upper and lower extremities, sensory exam intact.?PSYCH:?alert, oriented.? : ???Cut on finger:The wound was clean and not infected. The edges of the wound were well approximated. ??? Assessment: * Assessment: 1.?Overweight - E66.3 (Prima ry)???Notes :His body mass index is 26. We discussed her weight loss strategy. I recommended losing one half of a pound per week to regular exercise and a diet restricted in fat calories and sodium.???2.?Immunization, tetanus toxoid - Z23???Notes :He received a tetanus vaccine today without difficulty.???3.?Open wound - T14.8XXA???Notes :The area on the right third finger was cleaned and bandaged.? He was given instructions in care.???4.?Former smoker - Z87.891???Notes :He is highly motivated not to smoke. We discussed strategies for maintenance of abstinence in times of stress and illness.??? Plan: * Treatment: * Immunizations:? Tetanus and Diphtheria Toxoids Adsorbed : 0.5 mL (Dose No:1) (Route: Intramuscular) given by Lachelle Colbert on Left Arm ???Immunization record has been reviewed and updated. * Procedure Codes:?73387 TD VA CCINE NO PRSRV >/= 7 [id number] Td (adult) * Preventive Medicine:? ??Counseling:?Care goal follow-up plan:?Counseling for abnormal BMI given?Yes ?Above Normal BMI Follow-up?Dietary management education, guidance, and counseling ?Smoking/Tobacco Use?Patient counseled on the dangers of tobacco use and urged to quit.?12/31/2023 * Follow Up:?As Scheduled, Apr il (Reason: OV, Regular check-up) * Images: * Sign off status: Completed true * Provider:?Earl Hightower MD Date:?12/12 Generated for Printi ng/Juan/eTransmitting on:?05/15/2024 10:10 AM EDT History and Physical Notes * [...]
[2024-05-15 10:33] LABS: Basophils Percent Auto 0.4 % (0-2); Eosinophils Absolute Auto 0.3 X10*3/uL (0.0-0.4); Eosinophils Percent Auto 4.5 % (0-4); Hematocrit 41.9 % (42.0-52.0); Hemoglobin 14.3 g/dl (14.0-18.0); Imm Gran Abs Auto 0.01 X10*3/uL (0.00-0.03); Imm Gran Pct Auto 0.2 % (0.0-0.4); Lymphocytes Absolute Auto 1.6 X10*3/uL (1.2-4.9); Lymphocytes Percent Auto 28.9 % (20-40); Mean Corpuscular HGB Conc 34.1 g/dl (31.0-36.0); Mean Corpuscular Hemoglobin 31.4 pg (27.0-33.0); Mean Corpuscular Volume 91.9 fL (80.0-98.0); Mean Platelet Volume 10.6 fL (9.4-12.4); Monocytes Absolute Auto 0.4 X10*3/uL (0.1-1.2); Monocytes Percent Auto 7.1 % (2-11); Neutrophils Absolute Auto 3.2 x10*3/uL (2.0-8.3); Neutrophils Percent Auto 58.9 % (45-73); Platelet Count 170 X10*3/uL (160-400); Red Blood Count 4.56 X10*6/uL (4.60-5.80); Red Cell Distribution Width 12.7 % (11.0-16.0); White Blood Count 5.5 X10*3/uL (4.8-10.8)
[2024-05-15 12:09] LABS: Prostate Specific Antigen 2.61 ng/mL (<0.05-4.0)
[2024-05-15 12:21] LABS: Alanine Aminotransferase 18 U/L (0-40); Albumin Level 3.9 g/dL (3.5-5.0); Alkaline Phosphatase 60 U/L (39-117); Anion Gap 10 (12-20); Aspartate Amino Transferase 22 U/L (5-37); Bilirubin Total 0.9 mg/dL (0.0-1.0); Blood Urea Nitrogen 17 mg/dL (9-16); Calcium 8.8 mg/dL (8.4-10.2); Carbon Dioxide 25 mmol/L (22-29); Chloride 108 mmol/L (96-108); Cholesterol 196 mg/dL (<200); Estimated Glomerular Filt Rate > 60; Glucose Fasting 84 mg/dL (60-99); HDL Cholesterol 35 mg/dL (>40); LDL Cholesterol Calculated 129 mg/dL (<100); Potassium 4.1 mmol/L (3.3-5.1); Sodium 139 mmol/L (135-145); Total Protein 6.8 g/dL (6.5-8.0); Triglycerides 164 mg/dL (<150)
== END 2024-05-15 09:21 | disposition home or self-care (01) ==
LOC: HO.LAB 09:20
PROVIDERS: PCP Internal Medicine Medical Oncology; Visit Provider Internal Medicine Medical Oncology
DX: N40.0 Benign prostatic hyperplasia without lower urinary tract symptoms (principal); E78.5 Hyperlipidemia, unspecified; Z12.5 Encounter for screening for malignant neoplasm of prostate
CPT/HCPCS: 36415; 80053; 80061; 84153; 85025

== ENCOUNTER 2024-07-28 07:29 | Outpatient (REF) | payer MEDICARE, SELFPAY ==
--- OUTSIDE RECORDS SUMMARY | 2024-07-28 07:32 | XMS_ITS ---
Author Organization Earl Hightower III, MD Address [address] [place] [place] [address] Care Team Providers Care Software Quality Analyst Name Role Phone Earl Hightower Primary Care Provider REASON FOR VISIT ? Urine Culture Social History Sex Assigned At : Social History Observation Description Sex Assigned At Male Encounters Encounter Location Date Provider Diagnosis Earl Hightower III, MD [address] [place] [address] [place] [address] 07/22/2024 Earl Hightower UTI symptoms R39.9 and [...] Culture 07/22/2024 Next Appt Details Provider Name:Earl Hightower, 05/21/2025 10:30:00 AM, [address] [place] [address] [place], [address], Progress Notes * James ELLISDOB:1955 ( 69 yo M)Acc No.[id number]:07/22/2024 Patient:?James ELLIS :1955???Age:69 Y???Sex:Male Address:[address] [place] [address], [phone] Subjective: * Chief Complaints: * ? Urine Culture * Medical History:? * Surgical History:? * Hospitalization/Major Diagno stic Procedure:? * Medications:? Objective: * Vitals:? * Physical Examination:? Assessment: * Assessment: 1.?UTI symptoms - R39.9???2. ?BPH (benign prostatic hyperplasia) - N40.0??? Plan: * Treatment: 2.?BPH (benign prostatic hyp erplasia)?LAB: URINALYSIS (UA) ?LAB: PSA Free and Total ?LAB: Urine Culture * Procedure Codes:? * true * Date:? Generated for Noa huang/Juan/eTransmitting on:?07/28/2024 07:32 AM EDT
[2024-07-28 08:24] LABS: Appearance Urine Clear; Color Urine Yellow; Glucose Urine UA Negative (Negative); Leukocyte Esterase Urine Trace (Negative); Nitrite Urine Negative (Negative); Specific Gravity - Urine 1.015 (1.005-1.025); UMIC TRIGGER UA YES; Urine Blood Negative (Negative); Urine Ketones Negative (Negative); Urine Protein Negative (Neg-Trace)
[2024-07-28 08:30] LABS: Bacteria Urine None Seen (None Seen); Hyaline Casts Urine 0-2 /LPF (0-2); RBC Urine 0-2 /HPF (0-2); Squamous Epithelial Cell Urine 0-2 /HPF (0-2); WBC Urine 0-5 /HPF (0-5)
[2024-07-30 14:34] LABS: Free Prostate Spec Ag 0.8 ng/mL; Percent Free Prostate Spec Ag 31 % (calc) (>25); Prostate Specific Ag Total 2.6 ng/mL (< OR = 4.0)
== END 2024-07-28 07:30 | disposition home or self-care (01) ==
LOC: HO.LAB 07:29
PROVIDERS: PCP Internal Medicine Medical Oncology; Visit Provider Internal Medicine Medical Oncology
DX: R39.9 Unspecified symptoms and signs involving the genitourinary system (principal); N40.0 Benign prostatic hyperplasia without lower urinary tract symptoms
CPT/HCPCS: 36415; 81001; 84154; 87086

== ENCOUNTER 2024-11-12 12:57 | Outpatient (REF) | payer MEDICARE, SELFPAY ==
--- OUTSIDE RECORDS SUMMARY | 2024-05-14 05:26 | XMS_ITS ---
Author Organization Earl Hightower III, MD Address [address] [place] [address] [address] [place] [address] Care Team Providers Care Silvering Applicator Name Role Phone Dr. Earl Hightower III Primary Care Provider [phone] REASON FOR VISIT Message Social History Sex Assigned At : Social History Observation Description Sex Assigned At Male Encounters Encounter Location Date Provider Diagnosis Earl Hightower III, MD [address] [place] [address] [place] [address] 05/14/2024 Earl Hightower Plan Of Treatment Next Appt Details Provider Name:Earl Hightower , 11/17/2024 02:15:00 PM, [address] [place] [address] [place], [address], Provider Name:Earl Hightower , 05/21/2025 10:30:00 AM, [address] [place] [address] [place], [address], Progress Notes * James ELLISDOB:1955 ( 68 yo M)Acc No.[id number]:05/14/2024 Patient: James CONN :1955 A ge:68 Y S ex:Male Address:[address] [place] [address], [address] * true * Date: Generated for Noa huang/Juan/Jaren on: 02:26 PM EDT
--- OUTSIDE RECORDS SUMMARY | 2024-05-18 10:00 | XMS_ITS ---
Author Organization Earl Hightower III, MD Address [address] [place] [address] Care Team Providers Care Busperson Name Role Phone Dr. Earl Hightower III [...] Provider Speciality Internal M edicine Referred Provider [facility], Orthopedic Surgeons Referred Provider Specialty Orthopedic S urgery General Notes Leonor Young 06/08/2024 03:38:06 PM > Referral faxed with Progress noteHannah Amber 07/08/2024 10:59:17 AM > Spoke with [facility] stated the patient declined to schedule. [...] Problem Status W/U Status Risk Notes Problem [id number] Acute pain of right knee (M25.561) Active [...] Date Provider Diagnosis Earl Hightower III, MD [address] [place] [address] DR GARCÍA, ARMANDO [phone] 05/18/2024 Earl Hightower Acute pain of right [...] 05/18/2024 05/18/2024, Consult and Treat, Orthopedic Surgeons [facility] Next Appt Details Follow Up: 6 Weeks, Reason: Telehealth Provider Name:Earl Hightower , 11/17/2024 02:15:00 PM, [address] [place] [address] [place], [phone], Provider Name:Earl Hightower , 05/21/2025 10:30:00 AM, [address] [place] [address] [place], [phone], Progress Notes * James ELLISDOB:1955 ( 68 yo M)Acc No.[id number]:05/18/2024 Progress Notes Patient: James CONN Provider: Alfonso Hightower MD :1955 A ge:68 Y S ex:Male Date:05/18/2024 Address:[address] [place] [address] [id number] Subjective: * Chief Complaints: * A nnual [...] reading the newspaper or watching television S ever days M oving or speaking so slowly [...] N egative Marita zambrano was born in [place], [place] and now lives in [facility]. 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
--- OUTSIDE RECORDS SUMMARY | 2024-06-30 06:30 | XMS_ITS ---
Author Organization Earl Hightower III, MD Address [address] [place] [address] [address] [place] [address] Care Team Providers Care Telecommunications Switch Technician Name Role Phone Dr. Earl Hightower III Primary Care Provider REASON FOR VISIT Telehealth Social History Sex Assigned At : Social History Observation Description Sex Assigned At Male Encounters Encounter Location Date Provider Diagnosis Earl Hightower III, MD [address] [place] [address] [place] [address] 06/30/2024 Earl Hightower Plan Of Treatment Next Appt Details Provider Name:Earl Hightower , 11/17/2024 02:15:00 PM, [address] [place] [address] [place], [address], Provider Name:Earl Hightower , 05/21/2025 10:30:00 AM, [address] [place] [address] [place], [address], Progress Notes * James ELLISDOB:1955 ( 69 yo M)Acc No.[id number]:06/30/2024 Patient: Fifi FLORESJames Provider: Alfonso Hightower MD :1955 A ge:69 Y S ex:Male Date:06/30/2024 Address:[address] [place] [address] [id number] Subjective: * Chief Complaints: * 1 . [...] MD Date: 0 06/30/2024 Generated for Noa huang/Juan/Mosesitting on: 1 02:26 PM EDT
--- OUTSIDE RECORDS SUMMARY | 2024-07-22 05:18 | XMS_ITS ---
Author Organization Earl Hightower III, MD Address [address] [place] [address] Care Team Providers Care Breastfeeding Peer Counselor Name Role Phone Dr. Earl Hightower III Primary Care Provider Results Component Value Reference Range Notes PSA Free and Total (Not yet reviewed by provider) Interpretation: Performing Lab:[facility], [address] [place] [phone] Notes/Report: Prostate Specific Ag Total 2.6 < [...] 30 93 9 (3)Catalona et al.:ALMA 277: 3906-7586 (1996) (4)Catalona et al.:ALMA 279: 9877-5887 (1998) (x)These estimates vary with age, ethnicity, family [...] mind. PSA was performed using the Lyubov Adonay Immunoassay method. Values obtained from different assay methods cannot be used interchangeably. PSA levels, regardless of value, should not be interpreted as absolute evidence of the presence or absence of disease. THIS TEST WAS PERFORMED AT: [facility] [address] [phone] ADE ROBINS MD Free Prostate Spec Ag 0.8 Urine Culture (Not yet revie wed by provider) Interpretation: Performing Lab:[facility], [address] [place] [phone] Notes/Report: Urine Culture No growth. REASON FOR VISIT ? Urine Culture Social History Sex Assigned At : Social History Observation Description Sex Assigned At Male Encounters Encounter Location Date Provider Diagnosis Earl Hightower III, MD [address] [place] [address] [address] [place] [address] 07/22/2024 Earl Hightower UTI symptoms R39.9 and BPH (benign prostatic hyperplasia) N40.0 Assessments Encounter Date Diagnosis (ICD Code) Assessment Notes Treatment Notes Treatment Clinical Notes 07/22/2024 UTI symptoms (ICD-10 - R39.9) 07/22/2024 BPH (benign prostatic hyperplasia) (ICD-10 - N40.0) Plan Of Treatment Pending Test Test Name Order Date URINALYSIS (UA) 07/22/2024 PSA Free and Total 07/22/2024 Urine Culture 07/22/2024 Next Appt Details Provider Name:Earl Hightower , 11/17/2024 02:15:00 PM, [address] [place] [address] [address] [place], [address], Provider Name:Earl Hightower , 05/21/2025 10:30:00 AM, [address] [place] [address] [address], [place], [address], Progress Notes * ELLIS, JamesDOB:1955 ( 69 yo M)Acc No.[id number]:07/22/2024 Patient: James CONN :1955 A ge:69 Y S ex:Male Address:[address] [place] [address], [phone] Subjective: * Chief Complaints: * ? Urine [...] * Date: Generated for Noa huang/Juan/eTpatismitting on: 02:26 PM EDT
--- OUTSIDE RECORDS SUMMARY | 2024-11-12 05:03 | XMS_ITS ---
Author Organization Earl Hightower III, MD Address [address] [place] [address] [address] [place] [address] Care Team Providers Care Full Stack Software Developer Name Role Phone Dr. Earl Hightower III Primary Care Provider [phone] REASON FOR VISIT Request appointment Social History Sex Assigned At : Social History Observation Description Sex Assigned At Male Encounters Encounter Location Date Provider Diagnosis Earl Hightower III, MD [address] [place] [address] [address] [place] [address] 11/12/2024 Earl Hightower Hyperlipidemia E78.5 ; Hematuria, [...] THROMBOPLASTIN TIME (PTT) 2024 URINALYSIS (UA) 11/12/2024 Urine Culture 11/12/2024 Next Appt Details Provider Name:Earl Hightower , 11/17/2024 02:15:00 PM, [address] [place] [address] [address], [place], [address], Provider Name:Earl Hightower , 05/21/2025 10:30:00 AM, [address] [place] [address] [address], [place], [address], Progress Notes * ELLSIJamesDOB:1955 ( 69 yo M)Acc No.[id number]:11/12/2024 Patient: James CONN :1955 A ge:69 Y S ex:Male Address:[address] [place] [address], [address] Subjective: * Chief Complaints: * R equest appointment * Medical History: * Surgical History: * Hospitalization/Major Diagno stic Procedure: * Medications: Objective: * Vitals: * Physical Examination: Assessment: * Assessment: 1. H yperlipidemia - E78.5 2 . H ematuria, unspecified - R31.9 ?3. G ross hematuria - R31.0 4 . U TI symptoms - R39.9 Plan: * Treatment: 2. G ross hematuria L AB: CBC w DIFF L AB: PROTHROMBIN TIME (PT, INR) L AB: PARTIAL THROMBOPLASTIN TIME (PTT) L AB: URINALYSIS (UA) L AB: Urine Culture 3. U TI symptoms L AB: CBC w DIFF L AB: PROTHROMBIN TIME (PT, INR) L AB: PARTIAL THROMBOPLASTIN TIME (PTT) L AB: URINALYSIS (UA) L AB: Urine Culture * Procedure Codes: * * Date:
[2024-11-12 13:09] LABS: MANUAL DIFF FLAG NO
[2024-11-12 13:54] LABS: INTERNATIONAL NORM RATIO 1.1 (0.9-1.1); Partial Thromboplastin Time 34.9 SEC (26.7-34.1); Prothrombin Time 12.1 SEC (10.9-12.4)
[2024-11-12 13:56] LABS: Hematocrit 39.7 % (42.0-52.0); Hemoglobin 13.9 g/dl (14.0-18.0); Imm Gran Abs Auto 0.02 X10*3/uL (0.00-0.03); Imm Gran Pct Auto 0.3 % (0.0-0.4); Lymphocytes Absolute Auto 1.9 X10*3/uL (1.2-4.9); Mean Corpuscular HGB Conc 35.0 g/dl (31.0-36.0); Mean Corpuscular Hemoglobin 31.6 pg (27.0-33.0); Mean Corpuscular Volume 90.2 fL (80.0-98.0); NRBC Abs Auto 0.000 X10*3/uL (0.0-0.012); NRBC Pct Auto 0.0 /100WBC (0.0-0.2); Platelet Count 173 X10*3/uL (160-400); Red Blood Count 4.40 X10*6/uL (4.60-5.80); White Blood Count 6.4 X10*3/uL (4.8-10.8)
--- OUTSIDE RECORDS SUMMARY | 2024-11-12 14:26 | XMS_ITS | Patient Health Record ---
Author Organization Earl Hightower III, MD Address [address] [place] [address] [place] [address] Care Team Providers Care Seat Covers Trimmer Name Role Phone Dr. Earl Hightower III Primary Care Provider [phone] Allergies Allergen (clinical drug ingredient) Drug/Non Drug [...] 0.2 - 1.3 BLD Negative Negative - PSA Free and Total (Not yet reviewed by provider) Interpretation: Performing Lab:[facility], [address] [place] [phone] Notes/Report: Prostate Specific Ag Total 2.6 < OR = 4.0 ng/ mL Percent Free Prostate Spec Ag 31 >25 % (calc ) PSA(ng/mL) Free PSA(%) Estimated(x) Probability of Cancer(as%) 0-2.5 (*) Approx. 1 2.6-4.0(1) 0-27(2) 24(3) 4.1-10(4) 0-10 56 11-15 28 16-20 20 21-25 16 >or =26 8 >10(+) N/A >50 References:(1)Soheila et al.:Urology 60: 469-474 (2001) (2)Soheila et al.:J.Urol 168: 922-925 (2001) Free PSA(%) Sensitivity(%) Specificity(%) < or = 25 85 19 < or = 30 93 9 (3)Catalona et al.:ALMA 277: 1328-4819 (1996) (4)Catalona et al.:ALMA 279: 5918-9239 (1997) (x)These estimates vary with age, ethnicity, [...] of disease. THIS TEST WAS PERFORMED AT: [facility] [address] [address] ADE ROBINS MD Free Prostate Spec Ag 0.8 Urine Culture (Not yet revie wed by provider) Interpretation: Performing Lab:[facility], [address] [place] [phone] Notes/Report: Urine Culture No growth. Complete Blood Count Auto Di ff Reviewed date:05/18/2024 02:16:33 PM Interpretation: Performing Lab:[address] [phone] Notes/Report: White Blood Count 5.5 4.8-10.8 X10*3/uL Red Blood Count 4.56 4.60-5.80 X10*6/uL Hemoglobin 14.3 14.0-18.0 g/dl Hematocrit 41.9 42.0-52.0 % Mean Corpuscular Volume 91.9 80.0-98.0 fL Mean Corpuscular Hemoglobin 31.4 27.0-33.0 pg Mean Corpuscular HGB Conc 34.1 31.0-36.0 g/dl Red Cell Distribution Width 12.7 11.0-16.0 % Platelet Count 170 160-400 X10*3/uL Mean Platelet Volume 10.6 9.4-12.4 fL Neutrophils Percent Auto 58.9 45-73 % Imm Gran Pct Auto 0.2 0.0-0.4 % Lymphocytes Percent Auto 28.9 20-40 % Monocytes Percent Auto 7.1 2-11 % Eosinophils Percent Auto 4.5 0-4 % Basophils Percent Auto 0.4 0-2 % NRBC Pct Auto 0.0 0.0-0.2 /100WBC Neutrophils Absolute Auto 3.2 2.0-8.3 x10*3/u L Imm Gran Abs Auto 0.01 0.00-0.03 X10*3/uL Lymphocytes Absolute Auto 1.6 1.2-4.9 X10*3/u L Monocytes Absolute Auto 0.4 0.1-1.2 X10*3/uL Eosinophils Absolute Auto 0.3 0.0-0.4 X10*3/u L Basophils Absolute Auto 0.0 0.0-0.2 X10*3/uL NRBC Abs Auto 0.000 0.0-0.012 X10*3/uL Comprehensive [place]. Panel Fa st Reviewed date:05/18/2024 02:16:33 PM Interpretation: Performing Lab:[facility], [address] [place] [phone] Notes/Report: Sodium 139 135-145 mmol/L Potassium 4.1 3.3-5.1 mmol/L Chloride 108 96-108 mmol/L Carbon Dioxide 25 22-29 mmol/L Anion Gap 10 12-20 Blood Urea Nitrogen 17 9-16 mg/dL Creatinine 0.87 0.5-1.4 mg/dL Estimated Glomerular Filt Rate > 60 Chronic Kidney Disease: Estimated GFR < 60 mL/min/1.73m2 Severe Kidney Disease: Estimated GFR < 15 mL/min/1.73m2 Glucose Fasting 84 60-99 mg/dL Calcium 8.8 8.4-10.2 mg/dL Bilirubin Total 0.9 0.0-1.0 mg/dL Aspartate Amino Transferase 22 5-37 U/L Alanine Aminotransferase 18 0-40 U/L Total Protein 6.8 6.5-8.0 g/dL Albumin Level 3.9 3.5-5.0 g/dL Alkaline Phosphatase 60 39-117 U/L Lipid Panel Reviewed date:05/18/2024 02:16:33 PM Interpretation: Performing Lab:[address] [address] Notes/Report: Triglycerides 164 <150 mg/dL Desirable Triglyceride: less than 150 mg/dL Borderline High Triglyceride 150-199 mg/dL High Triglyceride: 200-499 mg/dL Very High Triglyceride: greater than or equal to 5OO mg/dL Cholesterol 196 <200 mg/dL Desirable Cholesterol: less than 200 mg/dL Borderline High Cholesterol: 200-239 mg/dL High Cholesterol: greater than 239 mg/dL LDL Cholesterol Calculated 129 <100 mg/dL Desirable LDL: less than 100 mg/dL Near Optimal/Above Optimal LDL: 110-129 mg/dL Borderline High LDL: 130-159 mg/dL High LDL: 160-189 mg/dL Very High LDL: greater than or equal to 190 mg/dL HDL Cholesterol 35 >40 mg/dL Desirable HDL: greater than 40 mg/dL Note: This HDL assay may give artificially low results in patients with liver disease. Prostate Specific Antigen Reviewed date:05/18/2024 02:16:33 PM Interpretation: Performing Lab:[address] [address] Notes/Report: Prostate Specific Antigen 2.61 <0.05-4.0 ng/mL PSA methodology: Brown Alinity i Chemiluminescent Microparticle Immunoassay (CMIA) Urinalysis and Microscopic ( Not yet reviewed by provider) Interpretation: Performing Lab:[address] [address] Notes/Report: Color Urine Yellow Appearance Urine Clear PH 6.0 5.0-9.0 Glucose Urine UA Negative Negative mg/dL Urine Blood Negative Negative Specific Thornton - Urine 1.015 1.005-1.025 Urine Protein Negative Neg-Trace mg/dL Urine Ketones Negative Negative mg/dL Nitrite Urine Negative Negative Leukocyte Esterase Urine Trace Negative RBC Urine 0-2 0-2 /HPF WBC Urine 0-5 0-5 /HPF Squamous Epithelial Cell Urine 0-2 0-2 /HPF Bacteria Urine None Seen None Seen Hyaline Casts Urine 0-2 0-2 /LPF Complete Blood Count Auto Di ff (Not yet reviewed by provider) Interpretation: Performing Lab:[facility], [address] [place] [phone] Notes/Report: White Blood Count 6.4 4.8-10.8 X10*3/uL Red Blood Count 4.40 4.60-5.80 X10*6/uL Hemoglobin 13.9 14.0-18.0 g/dl Hematocrit 39.7 42.0-52.0 % Mean Corpuscular Volume 90.2 80.0-98.0 fL Mean Corpuscular Hemoglobin 31.6 27.0-33.0 pg Mean Corpuscular HGB Conc 35.0 31.0-36.0 g/dl Red Cell Distribution Width 12.9 11.0-16.0 % Platelet Count 173 160-400 X10*3/uL Mean Platelet Volume 10.7 9.4-12.4 fL Neutrophils Percent Auto 62.9 45-73 % Imm Gran Pct Auto 0.3 0.0-0.4 % Lymphocytes Percent Auto 28.9 20-40 % Monocytes Percent Auto 5.1 2-11 % Eosinophils Percent Auto 2.3 0-4 % Basophils Percent Auto 0.5 0-2 % NRBC Pct Auto 0.0 0.0-0.2 /100WBC Neutrophils Absolute Auto 4.0 2.0-8.3 x10*3/u L Imm Gran Abs Auto 0.02 0.00-0.03 X10*3/uL Lymphocytes Absolute Auto 1.9 1.2-4.9 X10*3/u L Monocytes Absolute Auto 0.3 0.1-1.2 X10*3/uL Eosinophils Absolute Auto 0.2 0.0-0.4 X10*3/u L Basophils Absolute Auto 0.0 0.0-0.2 X10*3/uL NRBC Abs Auto 0.000 0.0-0.012 X10*3/uL Prothrombin Time INR (Not ye t reviewed by provider) Interpretation: Performing Lab:[facility], [address] [place] [phone] Notes/Report: Prothrombin Time 12.1 10.9-12.4 SEC INTERNATIONAL NORM RATIO 1.1 0.9-1.1 INTERNATIONAL NORMALIZED RATIO (INR) REFERENCE RANGES Reference Range For patients not on anticoagulant therapy: 0.9 - 1.1 INR ranges for oral anticoagulant therapy: For prevention and treatment of venous thrombosis and pulmonary embolism: 2.0 - 3.0 For acute myocardial infarction with aspirin therapy: 2.0 - 3.0 For acute myocardial infarction without aspirin therapy: 3.0 - 4.0 For patients with mechanical prosthetic heart valves: 2.5 - 3.5 Partial Thromboplastin Time (Not yet reviewed by provider) Interpretation: Performing Lab:[facility], [address] [place] [phone] Notes/Report: Partial Thromboplastin Time 34.9 26.7-34.1 SEC Reason For Referral Reason Consult and Treat Diagnosis 1 Right knee pain (M25 .561) Referral Organization Earl Hightower III, MD Referring Provider First Name Earl Referring Provider Last Name Katja Referring Provider Speciality Internal M edicine Referred Provider [facility], Orthopedic Surgeons Referred Provider Specialty Orthopedic S [facility] General Notes Leonor Young 06/08/2024 03:38:06 PM > Referral faxed with Progress noteHannah Amber 07/08/2024 10:59:17 AM > Spoke with [facility] Ortho stated the patient declined to schedule. Referral will be closed. Referral Priority Routine Medications Medication SIG (Take, Route, Frequency, Duration) [...] Problem Status W/U Status Risk Notes Problem 3617723 Former smoker (Z87.891) Active confirmed He is highly motivated not to smoke. We discussed strategies for maintenance of abstinence in times of stress and illness. Problem 23999358 Hyperlipidemia (E78.5) Active confirmed His lipids have been stable. A fasting lipid profile has been ordered prior to his next visit. Problem 268066029 Overweight (E66.3) Active confirmed His body mass index is 26. We discussed her weight loss strategy. I recommended losing one half of a pound per week to regular exercise and a diet restricted in fat calories and sodium. Problem 536107269 BPH (benign prostatic hyperplasia) (N40.0) Active confirmed He says he rises from sleep about once a night sometimes twice depending upon fluid intake. We reviewed lifestyle modifications he could make to reduce nocturia. Problem 832791844 Erectile dysfunction (N52.9) Active confirmed This problem has been addressed. This medication was effective. Problem 0155650920 Acute pain of right knee (M25.561) Active confirmed He has had pain with use in his right knee for a week. It does not appear to be gout. There is a small effusion, but no erythema. There is mild to moderate pain to weighttbearing. He was referred to orthopedics and imaging was ordered. Problem 69755354 Hernia (K46.9) Active confirmed He has seen a surgeon about her running wall hernia. The he has decided not to have the repair done at this time. Problem Hearing loss (10784742) Hearing loss, unspecified hearing loss type, unspecified laterality (H91.90) Active confirmed His hearing loss is unchanged. Declined an offer referral to ENT for audiology. Vital Signs Heart Rate 68 /min 05/18/2024 Temperature 98.1 degrees Fahrenheit 05/18/2024 Blood pressure diastolic 69 mm Hg 05/18/2024 Height 69.75 in 05/18/2024 Blood pressure systolic 125 mm Hg 05/18/2024 Weight 184 lbs 05/18/2024 BMI 26.59 kg/m2 05/18/2024 Encounters Encounter Location Date Provider Diagnosis Earl Hightower III, MD [address] [place] [address] [address] [place] [address] 11/19/2023 Earl Hightower BPH (benign prostati c hyperplasia) N40.0 ; Hyperlipidemia E78.5 ; Former smoker Z87.891 ; Hernia K46.9 and Sleep apnea, unspecified type G47.30 Earl Hightower III, MD [address] [place] [address] [address] [place] [address] 12/31/2023 Earl Hightower Immunization, tetanu s toxoid Z23 ; Overweight E66.3 ; Open wound T14.8XXA and Former smoker Z87.891 Earl Hightower III, MD [address] [place] [address] [address] [place] [address] 05/18/2024 Earl Hightower Acute pain of right knee M25.561 ; Hearing loss, unspecified hearing loss type, unspecified laterality H91.90 ; Hernia K46.9 ; Hyperlipidemia E78.5 ; Overweight E66.3 and Former smoker Z87.891 Earl Hightower III, MD [address] [place] [address] [address] [place] [address] 11/12/2024 Earl Hightower Hyperlipidemia E78.5 ; Hematuria, unspecified R31.9 ; Gross hematuria R31.0 and UTI symptoms R39.9 Earl Hightower III, MD [address] [place] [address] [address] [place] [address] 05/14/2024 Earl Hightower III, MD [address] [place] [address] [address] [place] [address] 07/22/2024 Earl Hightower UTI symptoms R39.9 a nd BPH (benign prostatic hyperplasia) N40.0 Assessments Encounter Date Diagnosis (ICD Code) Assessment Notes Treat ment Notes Treatment Clinical Notes 11/19/2023 Hyperlipidemia (ICD-10 - E78.5) His lipids have been stable. A fasting lipid profile has been ordered prior to his next visit. 11/19/2023 BPH (benign prostati c hyperplasia) (ICD-10 [...] in fat calories and sodium. 12/31/2023 Immunization, tetanu s toxoid (ICD-10 - Z23) He received a tetanus vaccine today without difficulty. 05/18/2024 Acute pain of right knee (ICD-10 [...] an offer referral to ENT for audiology. 11/12/2024 Hyperlipidemia (ICD-10 - E78.5) 07/22/2024 UTI symptoms (ICD-10 - R39.9) 11/19/2023 Former smoker (ICD-1 0 - Z87.891) He is highly motivated not to smoke. We discussed strategies for maintenance of abstinence in times of stress and illness. 12/31/2023 Open wound (ICD-10 - T14.8XXA) The area on the right third finger was cleaned and bandaged. He was given instructions in care. 05/18/2024 Hernia (ICD-10 - K46.9) He has seen a surgeon about her running wall hernia. The he has decided not to have the repair done at this time. 11/12/2024 Hematuria, unspecified (ICD-10 - R31.9) 07/22/2024 BPH (benign prostati c hyperplasia) (ICD-10 - N40.0) 11/19/2023 Hernia (ICD-10 - K46.9) He has seen a surgeon about her running wall hernia. The he has decided not to have the repair done at this time. 12/31/2023 Former smoker (ICD-1 0 - Z87.891) He is highly motivated not to smoke. We discussed strategies for maintenance of abstinence in times of stress and illness. 05/18/2024 Hyperlipidemia (ICD-10 - E78.5) His lipids have been stable. A fasting lipid profile has been ordered prior to his next visit. 11/12/2024 Gross hematuria (ICD-10 - R31.0) 11/19/2023 Sleep apnea, unspecified type (ICD-10 - G47.30) His sleep study shows he does not have sleep apnea. This problem will be removed from the list. 05/18/2024 Overweight (ICD-10 - E66.3) His body mass index is 26. We discussed her weight loss strategy. I recommended losing one half of a pound per week to regular exercise and a diet restricted in fat calories and sodium. 11/12/2024 UTI symptoms (ICD-10 - R39.9) 05/18/2024 Former smoker (ICD-1 0 - Z87.891) He is highly motivated not to smoke. We discussed strategies for maintenance of abstinence in times of stress and illness. Plan Of Treatment Pending Test Test Name [...] CBC w DIFF 02/12/2018 CBC w DIFF 11/12/2024 CBC w DIFF 03/08/2020 CBC w DIFF 09/02/2017 CBC w DIFF 11/02/2021 PROTHROMBIN TIME (PT, INR) 11/12/2024 PARTIAL THROMBOPLASTIN TIME (PTT) 2024 HELICOBACTER PYLORI IGG (H PYLORI IGG) 0 07/05/2023 URINALYSIS (UA) 11/12/2024 URINALYSIS (UA) 02/11/2020 URINALYSIS (UA) 07/22/2024 ETTA-GASPAR VIRUS PROFILE (EBV) 019 URINE CULTURE 02/11/2020 VITAMIN D 25-OH TOTAL 03/08/2020 CBC WITH AUTO DIFF 05/17/2023 Complete Blood Count Auto Diff Prothrombin Time INR 11/12/2024 Partial Thromboplastin Time 11/12/2024 Urinalysis and Microscopic 07/28/2024 Lipid Panel 11/02/2021 Lipid Panel 04/18/2021 Lipid Panel 11/19/2023 Lipid Panel 01/17/2021 PSA Free and Total 07/22/2024 Urine Culture 07/22/2024 Urine Culture 11/12/2024 Throat Culture 12/26/2022 H Pylori Breath Test 07/23/2023 Next Appt Details Provider Name:Earl Hightower , 11/17/2024 02:15:00 PM, [address] [place] [address] , DINAH Graham, [place], [address], Provider Name:Earl Uriasrne , 05/21/2025 10:30:00 AM, [address] [place] [address] DIN[address] WILKES, [place], [address], Insurance Providers Payer Name Payer Address Payer Phone Subscriber Number Group Number Insured Name Patient Relationship to Insured Coverage Start Date Coverage End Date [facility] [address] [place], [place] [id number] James Alberto Self - patient is the insured MEDICARE NGS [address] [place] [address] [phone] [id number] James Alberto Self - patient is the insured Medical (General) History Medical History History ICD Code fracture right ulnar fracture penis December 2015, untreated erectile dysfunction skin lesion anterior left shoulder former smoker history of lyme disease 2012 Surgical History Surgery Date(Month/Year) penile fracture 2016 fracture right ulnar both elbow surgery 1985, 1978 Deviated septum 1985 Hospitalization History Reason Date(Month/Year) No history
--- OUTSIDE RECORDS SUMMARY | 2024-11-12 14:26 | XMS_ITS | Data Portability ---
Author Organization [place] - [facility], Allergy Address [address] [address] Assessment Encounter Date Assessment Date Assessment LastModified [...] follow-up audiogram in 2 to 3 years [email or web address] Not available 07/02/2023 15:21:50 Plan of Treatment [...] Abnormal Flag Note LastModifiedBy Organization Detail LastModifiedTime 10/01/1903/26/2018 imagi ng/di agnos tic resul t No observ ation record ed. [email or web address] Not Available 21:25:07 10/01/19 24 07/02/2023 imagi ng/di agnos tic resul t No observ ation record ed. [email or web address] Not Available 21:25:17 Result Notes None recorded. Problems Name Problem SNOMED Code Status Onset Date Resolution Date Notes Provider Name and Address Organization Details Recorded Time Dizziness and giddiness 048981030 Active 2018 Dizziness and giddiness ; Note: Date Diagnosed : 03/26/2018 2:58 PM (R42) Not Available [facility] 4 02:39:49 Bilateral tinnitus 68819655037 02 Active 2018 Tinnitus, bilateral ; Note: Date Diagnosed : 03/26/2018 2:58 PM (H93.13) Not Available [facility] 4 02:39:55 Benign paroxysma l positiona l vertigo 983658342 Active 2018 Benign paroxysma l vertigo, unspecifi ed ear; Note: Date Diagnosed : 03/26/2018 2:58 PM (H81.10) Not Available [facility] 4 02:39:56 Sensorine ural hearing loss of bilateral ears 716257314 Active 2023 PAOLA ERNANDEZ, [address], [address] , [facility] - [facility] 4 14:56:17 Problem Notes None recorded. Procedures Surgical History Date Name Laterality Status Provider Name and Address Organization Details Recorded Time 4 Comp Audio with Tymps - 07568 & 90564 completed PAOLA ERNANDEZ, [address] [address], [place], [address], [place] - [facility] 07/02/2023 14:56:11 procedure on nose completed Cecilia Reveles [place] - [facility] 07/02/2023 15:07:22 procedure on elbow completed Cecilia Reveles [place] - [facility] 07/02/2023 15:07:29 Imaging Results None recorded. Procedure Notes None recorded. Medical Equipment None [...] Updated DateTime 07/02/2023 181.61 cm 25.4 kg/m2 38649.59 g Cecilia Reveles [place] - [facility] 07/02/2023 15:04:21 Social History None recorded. Functional Status None recorded. Mental Status None recorded. Family History Nothing Reported. Medical History No medical history recorded. Past Encounters Encounter ID Performer Location Encounter Start Date Encounter Closed Date Diagnosis/Indication Diagnosis SNOMED-CT Code Diagnosis ICD10 Code Diagnosis IMO Codes Diagnosis Note [id number] GARO SORENSEN MD [facility] [address] [address] 07/02/2023 13:58:16 07/02/2023 15:19:24 Bilateral tinnitus 6518112451 102 H93.13 Today we discussed the pathophysi [...] Sensorineu ral hearing loss of bilateral ears 817551219 H90.3 Audiologic al evaluation results: Right ear: Normal sloping at 3khz to a mild to moderate SNHL with excellent speech discrimina tion. Left ear: Normal sloping at 3khz to a mild to moderate SNHL with excellent speech discrimina tion. Tympanomet ry: Right Ear:Type As Left Ear:Type As 1046 TIM TURNER [facility] [address] [address] 07/02/2023 14:55:07 07/08/2023 18:01:22 Sensorineural hearing loss of bilateral ears 975017587 H90.3 Audiologic al evaluation results: Right ear: Normal sloping at 3khz to a mild to moderate SNHL with excellent speech discrimina tion. Left ear: Normal sloping at 3khz to a mild to moderate SNHL with excellent speech discrimina tion. Tympanomet ry: Right Ear:Type As Left Ear:Type As Health Concerns Section Related Observation LastModified by Organization Detai ls LastModified Time None Recorded Concern Status LastModified by Organization Details LastModified Time None Recorded Advance Directives Directive None Recorded Payers Insurance Date Sequence Insurance Name Policy Number Policy Clarke Covered Member ID Clarke Member ID Guarantor Name 07/02/2023 1 [place] [employer] James Alberto [id number] James Alberto 10/01/2023 2 [place] (MEDICARE REPLACEMENT PPO) [id number] James Alberto [id number] James Alberto Notes Date Note Type [...] noticeable in quiet environments. GARO SORENSEN MD [address] [place] [address], [address], [facility] - [facility] 07/02/2023 15:22:28
--- OUTSIDE RECORDS SUMMARY | 2024-11-12 14:26 | XMS_ITS | Clinical Summary ---
Author Organization [facility] Address [address] [place] [address] Phone Care Team Providers Care [employer] Machine Feeder Name Role Phone Earl Hightower MD Primary Care Provider [phone] Social History Tobacco Use Types Packs/Day Years Used Date Smoking Tobacco: Never Assessed Education Answer Date Recorded Are you interested in more education? Not on jayson e 07/23/2023 Are you concerned about learning? Not on file 07/23/2023 No 07/23/2023 No 07/23/2023 Digital Access Answer Date Recorded No 07/23/2023 No 07/23/2023 Reliable internet access at home? Not on file 07/23/2023 Device with a working camera? Not on file Sex and Gender Information Value Date Recorded Sex Assigned at Not on file Legal Sex Male 12:02 PM EDT Gender Identity Not on file Sexual Orientation Not on file Plan of Treatment Not on file Medical Devices Not on file Insurance [place]UE REPLACEMENT MEDICARE PART A & B MEDICARE PART A & B MEDICARE PART A & B MEDICARE PART A & B MEDICARE PART A & B MEDICARE PPO BLUE REPLACEMENT MEDICARE PART A & B Care Teams [employer]eder Relationship Specialty Start Date End Date Earl Hightower MD [address] [place] [address] [place] [address] PCP - General Medical Oncology 07/11/23 Additional Source Comments The information contained in this document represents components of the legal health record. It is not the complete legal health record.[facility]
[2024-11-12 14:31] LABS: Appearance Urine Clear; Glucose Urine UA Negative (Negative); PH 5.5 (5.0-9.0); Specific Gravity - Urine 1.015 (1.005-1.025)
== END 2024-11-12 12:58 | disposition home or self-care (01) ==
LOC: HO.LAB 12:57
PROVIDERS: PCP Internal Medicine Medical Oncology; Visit Provider Internal Medicine Medical Oncology
DX: E78.5 Hyperlipidemia, unspecified (principal); R31.0 Gross hematuria; R39.9 Unspecified symptoms and signs involving the genitourinary system
CPT/HCPCS: 36415; 81003; 85025; 85610; 85730; 87086

== ENCOUNTER 2025-01-01 14:32 | Outpatient (REF) | payer MEDICARE, SELFPAY ==
--- OUTSIDE RECORDS SUMMARY | 2023-07-30 10:14 | XMS_ITS ---
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 Earl Hightower III Primary Care Provider REASON FOR VISIT Needs call back from Social History Sex Assigned At : Social History Observation Description Sex Assigned At Male Encounters Encounter Location Date Provider Diagnosis Earl Hightower III, MD [address] [place] [address] [place] [address] 07/30/2023 Earl Hightower Plan Of Treatment Next Appt Details Provider Name:Earl Hightower , 05/21/2025 10:30:00 AM, [address] [place] [address] [place], [address], Progress Notes * James ELLISDOB:1955 ( 68 yo M)Acc No.[id number]:07/30/2023 Patient: James Jon :1955 A ge:68 Y S ex:Male Address:[address] [place] [address], [phone] * true * Date: Generated for Printi ng/Faxing/eTransmitting on: 1 03/03/2024 02:50 PM EST
--- OUTSIDE RECORDS SUMMARY | 2023-08-27 10:45 | XMS_ITS ---
Author Organization Earl Hightower III, MD Address [address] [place] [address] Care Team Providers Care Review Specialist Name Role Phone Dr. Earl Hightower III Primary Care Provider [phone] Allergies Allergen (clinical drug ingredient) Drug/Non Drug Allergy documented on EMR Reaction Allergy Type Onset Date Status Bee Sting Unknown Allergy Active Reason For Referral Reason Consult and Treat Symptomatic Right Inguinal Hernia Diagnosis 1 Hernia (K46.9) Referral Organization Earl Hightower III, MD Referring Provider First Name Earl Referring Provider Last Name Katja Referring Provider Speciality Internal M edicine Referred Provider James Jacques Referred Provider Specialty General Surg tyrone General Notes Leonor Coker 09/02 10:48:40 AM > Referral faxed with progress note and phill Referral Priority Routine Referral Appointment Date 09/17/2023 REASON FOR VISIT Right inguinal hernia, Benign prostatic hypertrophy, Hyperlipidemia, Sleep apnea Medications Medication SIG (Take, Route, Frequency, Duration) Notes Start Date End Date Status EPINEPHrine 0.3 MG/0.3ML as directed Inj ection use once prn with beesting 03/08/2020 Active Social History Tobacco Use: Social History Observation Description Date Details (start date - stop date) Former Smoker NA - NA Sex Assigned At : Social History Observation Description Sex Assigned At Male Tobacco Use/Smoking Question Answer Notes Patient is a former smoker How long has it been since you last smoked? > 10 years Additional Findings: Tobacco Non-User Ex-cigaret te smoker Vital Signs Temperature 97.6 degrees Fahrenheit 08/27/19 24 Blood pressure systolic 120 mm Hg 08/27/19 24 Blood pressure diastolic 76 mm Hg 024 Heart Rate 65 /min 08/27/2023 Height 70 in 08/27/2023 Weight 181 lbs 08/27/2023 BMI 25.97 kg/m2 08/27/2023 Encounters Encounter Location Date Provider Diagnosis Earl Hightower III, MD [address] [place] [address] [address] [place], [place] [address] 08/27/2023 Earl Hightower Right inguinal herni a K40.90 ; Former smoker Z87.891 ; Overweight E66.3 ; BPH (benign prostatic hyperplasia) N40.0 and Hyperlipidemia E78.5 Assessments Encounter Date Diagnosis (ICD Code) Assessment Notes T reatment Notes Treatment Clinical Notes 08/27/2023 Right inguinal hernia (ICD-10 - K40.90) His discomfort has become a nuisance and he would like to have the hernia repaired. He has been referred to general surgery for this purpose. I find no contraindication to surgery and he is given medical clearance. 08/27/2023 Former smoker (ICD-10 - Z87.891) He is highly motivated not to smoke. We discussed strategies for maintenance of abstinence in times of stress and illness. 08/27/2023 Overweight (ICD-10 - E66.3) His body mass index is 26. We discussed her weight loss strategy. I recommended losing one half of a pound per week to regular exercise and a diet restricted in fat calories and sodium. 08/27/2023 BPH (benign prostatic hyperplasia) (ICD-10 - N40.0) He rises from sleep once or twice a night depending upon fluid intake. We have discussed lifestyle modification as an effective way to reduce nocturia. 08/27/2023 Hyperlipidemia (ICD-10 - E78.5) Conference of blood work with a fasting lipid profile and a PSA has been ordered. Plan Of Treatment Medication Medication Name Sig Start Date Stop Date Notes EPINEPHrine 0.3 MG/0.3ML as directed Inj ection use once prn with beesting 03/08/2020 Referrals Referral Date Details 08/27/2023 08/27/2023, Consult and Treat Symptomatic Right Inguinal Hernia , James Jacques Next Appt Details Follow Up: 2 Months, Reason: Office visit Provider Name:Earl Hightower , 05/21/2025 10:30:00 AM, [address] [place] [address] [place], [address], Progress Notes * James ELLISDOB:1955 ( 68 yo M)Acc No.[id number]:08/27/2023 Patient: James Jon Provider: Alfonso Hightower MD :1955 A ge:68 Y S ex:Male Date:08/27/2023 Address:[address] [place] [id number] Subjective: * Chief Complaints: * R ight inguinal herniaBenign prostatic hypertrophyHyperlipidemiaSleep apnea * HPI: C OVID-19 Screening: He returns for management of several issues. He says he is sleeping well using CPAP. He rises from sleep once a night to urinate. He takes no new medications. He has a small right inguinal hernia that has increased and is now a nuisance. He would like to have it repaired. He was examined. We discussed the issue of herniorrhaphy. He was referred to general surgery at [facility] for repair. His blood pressure was stable today. He continues his efforts at weight loss. Questions H ave you experienced fever, chills, cough, sore throat, shortness of breath, difficulty breathing, muscle aches, loss of taste or smell? N o H ave you been exposed to the virus within the last 10 days? N o H ave you travelled internationally in the last 10 days? Y es Came back from [place] on 08/20 H ave you been exposed to COVID-19 in the past? Y es F amily Planning: h. * ROS: G eneral/Constitutional: pain R ight inguinal hernia, otherwise only normal aches and pains. C hills d enies. F atigue a dmits. F ever d enies. E NT: Decreased hearing i n both ears. R espiratory: Cough d enies. C ardiovascular: Chest pain with exertion d enies. D yspnea on exertion?denies. S hortness of breath d enies. G astrointestinal: Constipation o ccasional. D ecreased appetite d enies. D iarrhea d enies. H eartburn d enies. N ausea d enies. R ectal bleeding d enies. V omiting d enies. H ematology: bruising d enies. p etechiae d enies. S wollen glands n one have been noted. G enitourinary: Frequent urination o nce a night. M usculoskeletal: Muscle aches d enies. P ainful joints d enies. S ciatica d enies. W eakness d enies. S kin: Itching d enies. R bong d enies. S kin lesion(s)?denies. N eurologic: Difficulty speaking d enies. D izziness d enies.?Headache d enies. L ow back pain d enies. P sychiatric: Depressed mood d enies. * Medical History: * Surgical History: D eviated septum 1985both elbow surgery 1978fracture right ulnar spenile fracture 2015 * Hospitalization/Major Diagno stic Procedure: D enies Past Hospitalization * Family History: F ather: 76 yrs, lung cancer. M other: 36 yrs, Automobile accident. 4 brother(s) , 1 sister(s) . . His oldest brother has had a myocardial infarction. A younger brother has anxiety and a sister has skin cancer. One of his father's sisters had breast cancer at the age of 56. He is unaware of any family history of ovarian, colon, prostate or pancreatic cancer. On uncle has diabetes. He is not aware of any family history of mental illness or addiction or substance use disorder. * Social History: T obacco Use: T obacco Use/Smoking P atient is a f ormer smoker H ow long has it been since you last smoked??> 10 years A dditional Findings: Tobacco Non-User E x-cigarette smoker Marita zambrano was born in [place], [place] and now lives in [facility]. 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 He has been to his , Dariusz, for 6 years. She has 2 children by another marriage. * Medications: T akingEPINEPHrine 0.3 MG/0.3ML Solution Auto-injector as directed Injection use once prn with beestingTaking EPINEPHrine 0.3 MG/0.3ML Solution Auto-injector as directed Injection use once prn with beesting * Allergies: Clay Parkinson[Allergies Verified] Objective: * Vitals: H t: 70, Wt:181, BMI:25.97, BP:120/76, HR:65, Temp:97.6, Wt-k.1. * Examination: G eneral Examination: GENERAL APPEARANCE: p leasant, well nourished, well developed, in no acute distress, calm and relaxed , overweight , man. HEAD: a traumatic, normocephalic. EYES: e jennifer, perrla, anicteric, conjugate. EARS: n ormal. NOSE: s eptum intact. ORAL CAVITY: n ormal, unremarkable. NECK/THYROID: n o jugular venous distention, no carotid bruit, thyroid normal. LYMPH NODES: n o enlarged lymph nodes,spleen normal. SKIN: n o suspicious lesions, anicteric. HEART: n o clicks, gallops, murmurs, or rubs, regular rhythm, S1, S2 normal, no s3, or vascular bruits. LUNGS: c lear to auscultation . BREASTS: no masses palpable bilaterally. ABDOMEN: b owel sounds normal, no ascites, no organomegaly, no mass , overweight, Moderate right inguinal hernia. RECTAL EXAM: n ot examined. MUSCULOSKELETAL: e xtremities unremarkable, no clubbing, cyanosis or edema. PERIPHERAL PULSES: n ormal. NEUROLOGIC: a lert and oriented, cranial nerves 2-12 grossly intact, deep tendon reflexes 2+ symmetrical, motor strength normal upper and lower extremities, sensory exam intact. PSYCH: a lert, oriented. Assessment: * Assessment: 1. R ight inguinal hernia - K40.90 (Primary), His discomfort has become a nuisance and he would like to have the hernia repaired. He has been referred to general surgery for this purpose. I find no contraindication to surgery and he is given medical clearance. 2 . F ormer smoker - Z87.891, He is highly motivated not to smoke. We discussed strategies for maintenance of abstinence in times of stress and illness. 3 . O verweight - E66.3, His body mass index is 26. We discussed her weight loss strategy. I recommended losing one half of a pound per week to regular exercise and a diet restricted in fat calories and sodium. 4 . B PH (benign prostatic hyperplasia) - N40.0, He rises from sleep once or twice a night depending upon fluid intake. We have discussed lifestyle modification as an effective way to reduce nocturia. 5 . H yperlipidemia - E78.5, Conference of blood work with a fasting lipid profile and a PSA has been ordered. Plan: * Treatment: * Procedure Codes: * Preventive Medicine: Counseling: C are goal follow-up plan: Counseling for abnormal BMI given Y es Above Normal BMI Follow-up D ietary management education, guidance, and counseling, Dietary needs education S moking/Tobacco Use Patient counseled on the dangers of tobacco use and urged to quit. 0 08/28/2023 * Follow Up: 2 Months (Reason: Office visit) * Images: * Sign off status: Completed true * Provider: Alfonso Hightower MD Date: 0 08/27/2023 Generated for Noa huang/Juan/Jaren on: 1 03/03/2024 02:51 PM EST History and Physical Notes * HPI (History of Present Illness) Category Sub-Category Detail Notes COVID-19 Screening Questions Have you had any new onset fever, chills, cough, congestion, sore throat, shortness of breath, muscle aches?: No Have you been exposed to the virus within the last 10 days?: No Have you travelled internati onally in the last 10 days?: Yes Came back from [place] on 08/20 Have you been exposed to COVID-19 in the past?: Yes Examination Category Sub-Category Detail Notes General Examination GENERAL APPEARANCE: pleasant , well nourished, well developed, in no acute distress, calm and relaxed , overweight , man HEAD: atraumatic, normocep halic EYES: eomi, perrla, anicte dale, conjugate EARS: normal NOSE: septum intact NECK/THYROID: no jugular venous di stention, no carotid bruit, thyroid normal HEART: no clicks, gallops, murmurs, or rubs, regular rhythm, S1, S2 normal, no s3, or vascular bruits LUNGS: clear to auscultatio n ABDOMEN: bowel sounds normal, no ascites, no organomegaly, no mass , overweight, Moderate right inguinal hernia NEUROLOGIC: alert and oriented, cranial nerves 2-12 grossly intact, deep tendon reflexes 2+ symmetrical, motor strength normal upper and lower extremities, sensory exam intact SKIN: no suspicious lesion s, anicteric PERIPHERAL PULSES: normal BREASTS: no masses palpable b ilaterally MUSCULOSKELETAL: extremities unremark able, no clubbing, cyanosis or edema LYMPH NODES: no enlarged lymph no deepa,spleen normal RECTAL EXAM: not examined PSYCH: alert, oriented ORAL CAVITY: normal, unremarkable Consultation Request Notes Referral Date Referring Provider Referred Provider Not marine 08/27/2023 aErl Hightower John Consult and Treat Symptomatic Right Inguinal Hernia
--- OUTSIDE RECORDS SUMMARY | 2023-11-19 09:00 | XMS_ITS ---
Author Organization Earl Hightower III, MD Address [address] [place] [address] [place] [address] Care Team Providers Care Bottle Machine Operator Name Role Phone Dr. Earl Hightower III Primary Care Provider Allergies Allergen (clinical drug ingredient) Drug/Non Drug Allergy documented on EMR Reaction Allergy Type Onset Date Status Bee Sting Unknown Allergy Active REASON FOR VISIT Follow Up Medications Medication SIG (Take, Route, Frequency, Duration) [...] Non-User Ex-cigaret te smoker Vital Signs Temperature 98.1 degrees Fahrenheit 11/19/19 24 Blood pressure systolic 128 mm Hg 11/19/19 24 Blood pressure diastolic 78 mm Hg 024 Heart Rate 63 /min 11/19/2023 Height 70 in 11/19/2023 Weight 179 lbs 11/19/2023 BMI 25.68 kg/m2 11/19/2023 Encounters Encounter Location Date Provider Diagnosis Earl Hightower III, MD [address] [place] [address] [place] [address] 11/19/2023 Earl Uriasrne BPH (benign prostati c hyperplasia) N40.0 ; Hyperlipidemia E78.5 ; Former smoker Z87.891 ; Hernia K46.9 and Sleep apnea, unspecified type G47.30 Assessments Encounter Date Diagnosis (ICD Code) Assessment Notes Treat ment Notes Treatment Clinical Notes 11/19/2023 BPH (benign prostati c hyperplasia) (ICD-10 - N40.0) He says he rises from sleep about once a night sometimes twice depending upon fluid intake. We reviewed lifestyle modifications he could make to reduce nocturia. 11/19/2023 Hyperlipidemia (ICD-10 - E78.5) His lipids have been stable. A fasting lipid profile has been ordered prior to his next visit. 11/19/2023 Former smoker (ICD-1 0 - Z87.891) He is highly motivated not to smoke. We discussed strategies for maintenance of abstinence in times of stress and illness. 11/19/2023 Hernia (ICD-10 - K46.9) He has seen a surgeon about her running wall hernia. The he has decided not to have the repair done at this time. 11/19/2023 Sleep apnea, unspecified type (ICD-10 - G47.30) His sleep study shows he does not have sleep apnea. This problem will be removed from the list. Plan Of Treatment Medication Medication Name Sig Start Date Stop Date Notes EPINEPHrine 0.3 MG/0.3ML as directed Inj ection use once prn with beesting 03/08/2020 Pending Test Test Name Order Date PROFILE, FASTING (COMPREHENSIVE METABOLI C) 11/19/2023 PSA, TOTAL 11/19/2023 CBC w DIFF 11/19/2023 Lipid Panel 11/19/2023 Next Appt Details Follow Up: May, Reason: An nual Visit Provider Name:Earl Hightower , 05/21/2025 10:30:00 AM, [address] [place] [address] [address], [place], [address], Progress Notes * Jignesh ELLIS:1955 ( 68 yo M)Acc No.[id number]:11/19/2023 Progress Notes Patient: James CONN Provider: Alfonso Hightower MD :1955 A ge:68 Y S ex:Male Date:11/19/2023 Address:[address] [place], [place] [address], [id number] Subjective: * Chief Complaints: * F ollow Up * HPI: C OVID-19 Screening: Questions H ave you experienced fever, chills, cough, sore throat, shortness of breath, difficulty breathing, muscle aches, loss of taste or smell? N o H ave you been exposed to the virus within the last 10 days? N o H ave you travelled internationally in the last 10 days? N o H ave you been exposed to COVID-19 in the past? Y es * : The patient, a 68-year-old male, has been dealing with a hernia which was discussed in the previous visit. The hernia was identified during a standing examination and increases with the Valsalva maneuver. However, it can be easily reduced with light pressure. The patient had a sleep study which turned out to be negative and he doesn't need a CPAP machine. The patient has been trying to lose weight and has lost 2 lbs. His current body mass index is 25.68, which is slightly above normal. The patient's blood pressure is 128/70, which is perfect. The patient had a blood test in July and the results were normal. The patient's cholesterol was 188, and his PSA was 2.42, showing no sign of prostate cancer. * ROS: G eneral/Constitutional: pain o nly normal aches and pains. C hills d enies.?Fatigue a dmits. F ever d enies. E NT: Decreased hearing d enies. R espiratory: Cough d enies. C ardiovascular: [...] History: D eviated septum 1985both elbow surgery 1985, 1978fracture right ulnar spenile fracture 2015No history * Hospitalization/Major Diagno stic Procedure: N o history * Family History: F ather: 76 yrs, [...] T obacco Use: T obacco Use/Smoking P atrosina is a f ormer smoker H ow long has it been since you last smoked??> 10 years A dditional Findings: Tobacco Non-User E x-cigarette smoker Marita zambrano was born in [place], [place] and now lives in [facility]. 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 He has been to his , Dariusz, for 6 years. She has 2 children by another marriage. * Medications: T akingEPINEPHrine 0.3 MG/0.3ML Solution Auto-injector as directed Injection use once prn with beesting Medication List reviewed and reconciled with the patientTaking EPINEPHrine 0.3 MG/0.3ML Solution Auto-injector as directed Injection use once prn with beesting Medication List reviewed and reconciled with the patient * Allergies: Clay Parkinson[Allergies Verified] Objective: * Vitals: H t: 70, Wt:179, BMI:25.68, BP:128/78, HR:63, Temp:98.1, Wt-k.19. * Examination: G eneral Examination: GENERAL APPEARANCE: p leasant, well nourished, well developed, in no acute distress, calm and relaxed, overweight, man. HEAD: a traumatic, normocephalic. EYES: e [...] sounds normal, no ascites, no organomegaly, no mass, overweight. RECTAL EXAM: n ot examined. MUSCULOSKELETAL: e xtremities unremarkable, no clubbing, cyanosis or edema. PERIPHERAL PULSES: n ormal. NEUROLOGIC: a lert and oriented, cranial nerves 2-12 grossly intact, deep tendon reflexes 2+ symmetrical, motor strength normal upper and lower extremities, sensory exam intact, Memory appears to be normal. PSYCH: a lert, oriented. Assessment: * Assessment: 1. B PH (benign prostatic hyperplasia) - N40.0 (Primary) N otes :He says he rises from sleep about once a night sometimes twice depending upon fluid intake. We reviewed lifestyle modifications he could make to reduce nocturia. 2 . H yperlipidemia - E78.5 N otes :His lipids have been stable. A fasting lipid profile has been ordered prior to his next visit. 3 . F ormer smoker - Z87.891 N otes :He is highly motivated not to smoke. We discussed strategies for maintenance of abstinence in times of stress and illness. 4 . H ernia - K46.9 N otes :He has seen a surgeon about her running wall hernia. The he has decided not to have the repair done at this time. 5 . S leep apnea, unspecified type - G47.30 N otes :His sleep study shows he does not have sleep apnea. This problem will be removed from the list. Plan: * Treatment: 2. H yperlipidemia L AB: PROFILE, FASTING (COMPREHENSIVE METABOLIC) L AB: PSA, TOTAL L AB: CBC w DIFF L AB: Lipid Panel 3. O thers Continue EPINEPHrine Solution Auto-injector, 0.3 MG/0.3ML, as directed, Injection, use once prn with beesting. * Procedure Codes: * Preventive Medicine: Counseling: C are goal follow-up plan: Counseling for abnormal BMI given Y es Above Normal BMI Follow-up D ietary management education, guidance, and counseling S moking/Tobacco Use Patient counseled on the dangers of tobacco use and urged to quit. 1 * Follow Up: A pril (Reason: Annual Visit) * Images: * Sign off status: Completed true * Provider: Alfonso Hightower MD Date: Generated for Noa huang/Juan/Mosesitting on: 03/03/2024 02:51 PM EST History and Physical Notes * HPI (History of Present Illness) Category Sub-Category Detail Notes COVID-19 Screening Questions Have you had any new onset fever, chills, cough, congestion, sore throat, shortness of breath, muscle aches?: No Have you been exposed to the virus withi n the last 10 days?: No Have you travelled internationally in e last 10 days?: No Have you been exposed to COVID-19 in the past?: Yes Examination Category Sub-Category Detail Notes General Examination GENERAL APPEARANCE: pleasant , well nourished, well developed, in no acute distress, calm and relaxed, overweight, man HEAD: atraumatic, normocep halic EYES: eomi, perrla, anicte dale, conjugate EARS: normal NOSE: septum intact NECK/THYROID: no jugular venous di stention, no carotid bruit, thyroid normal HEART: no clicks, gallops, murmurs, or rubs, regular rhythm, S1, S2 normal, no s3, or vascular bruits LUNGS: clear to auscultatio n ABDOMEN: bowel sounds normal, no ascites, no organomegaly, no mass, overweight NEUROLOGIC: alert and oriented, cranial nerves 2-12 grossly intact, deep tendon reflexes 2+ symmetrical, motor strength normal upper and lower extremities, sensory exam intact, Memory appears to be normal SKIN: no suspicious lesion s, anicteric PERIPHERAL PULSES: normal BREASTS: no masses palpable b ilaterally MUSCULOSKELETAL: extremities unremark able, no clubbing, cyanosis or edema LYMPH NODES: no enlarged lymph no deepa,spleen normal RECTAL EXAM: not examined PSYCH: alert, oriented ORAL CAVITY: normal, unremarkable
--- OUTSIDE RECORDS SUMMARY | 2023-12-31 08:30 | XMS_ITS ---
Author Organization Earl Hightower III, MD Address [address] [address] Care Team Providers Care Hospital Cleaning Specialist Name Role Phone Dr. Earl Hightower III Primary Care Provider Allergies Allergen (clinical drug ingredient) Drug/Non Drug Allergy documented on EMR Reaction Allergy Type Onset Date Status Bee Sting Unknown Allergy Active REASON FOR VISIT Right hand middle finger laceration x 2 days, Hearing loss, Benign prostatic hypertrophy, Hyperlipidemia Medications Medication SIG (Take, Route, Frequency, Duration) Notes Start Date End Date Status EPINEPHrine 0.3 MG/0.3ML as directed Inj ection use once prn with beesting 03/08/2020 Active Immunizations Vaccine Route Administration Date Status Comme nts Tetanus and Diphtheria Toxoids Adsorbed IM Intramuscular 12/31/2023 Administered Social History Tobacco Use: Social History Observation [...] Non-User Ex-cigaret te smoker Vital Signs Temperature 97.4 degrees Fahrenheit 12/31/19 24 Blood pressure systolic 117 mm Hg 12/31/19 24 Blood pressure diastolic 78 mm Hg 024 Heart Rate 59 /min 12/31/2023 Height 70 in 12/31/2023 Weight 182 lbs 12/31/2023 BMI 26.11 kg/m2 12/31/2023 Encounters Encounter Location Date Provider Diagnosis Earl Hightower III, MD [address] [place] [address] [place] [address] 12/31/2023 Earl Hightower Immunization, tetanu s toxoid Z23 ; Overweight E66.3 ; Open wound T14.8XXA and Former smoker Z87.891 Assessments Encounter Date Diagnosis (ICD Code) Assessment Notes Treatment Notes Treatment Clinical Notes 12/31/2023 Immunization, tetanus toxoid (ICD-10 - Z23) He received a tetanus vaccine today without difficulty. 12/31/2023 Overweight (ICD-10 - E66.3) His body mass index is 26. We discussed her weight loss strategy. I recommended losing one half of a pound per week to regular exercise and a diet restricted in fat calories and sodium. 12/31/2023 Open wound (ICD-10 - T14.8XXA) The area on the right third finger was cleaned and bandaged. He was given instructions in care. 12/31/2023 Former smoker (ICD-10 - Z87.891) He is highly motivated not to smoke. We discussed strategies for maintenance of abstinence in times of stress and illness. Plan Of Treatment Medication Medication Name Sig Start Date Stop Date Notes EPINEPHrine 0.3 MG/0.3ML as directed Inj ection use once prn with beesting 03/08/2020 Next Appt Details Follow Up: As Scheduled, May, Reason: OV, Regular check-up Provider Name:Earl Hightower , 05/21/2025 10:30:00 AM, [address] [place] [address] [address], [place], [address], Progress Notes * James ELLISDOB:1955 ( 68 yo M)Acc No.[id number]:12/31/2023 Patient: James CONN Provider: Alfonso Hightower MD :1955 A ge:68 Y S ex:Male Date:12/31/2023 Address:[address] [place] [address], [place], [id number] Subjective: * Chief Complaints: * R ight hand middle finger laceration x 2 daysHearing lossBenign prostatic hypertrophyHyperlipidemia * HPI: C OVID-19 Screening: Questions H [...] * : The patient, a 68-year-old male, presented with a cut on his third finger of the right hand, which occurred two days prior to the consultation. The injury was sustained while the patient was hanging a blanket to dry in the basement and accidentally hit a piece of metal. The cut was not severe but bled profusely, especially when the patient moved his finger. The patient reported that the bleeding had stopped, but the wound would reopen when he bent his finger. The doctor examined the wound and found it to be clean and not infected. The edges of the wound were well approximated, indicating that it would heal. The doctor advised the patient to apply a triple antibiotic ointment and cover the wound with a Band-Aid. The patient was also given a tetanus shot due to the uncertainty of what might have been on the piece of metal that caused the injury. * ROS: G eneral/Constitutional: pain o nly [...] x-cigarette smoker Marita zambrano was born in [place], [place] and now lives in [facility]. 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 * Examination: G eneral Examination: GENERAL APPEARANCE: [...] e xtremities unremarkable, no clubbing, cyanosis or edema, Small laceration right third finger without infection. PERIPHERAL PULSES: n ormal. NEUROLOGIC: a lert and oriented, cranial nerves 2-12 grossly intact, deep tendon reflexes 2+ symmetrical, motor strength normal upper and lower extremities, sensory exam intact. PSYCH: a lert, oriented. - : C ut on finger:The wound was clean and not infected. The edges of the wound were well approximated. Assessment: * Assessment: 1. O verweight - E66.3 (Primary) N otes :His body mass index is 26. We discussed her weight loss strategy. I recommended losing one half of a pound per week to regular exercise and a diet restricted in fat calories and sodium. 2 . I mmunization, tetanus toxoid - Z23 N otes :He received a tetanus vaccine today without difficulty. 3 . O pen wound - T14.8XXA N otes :The area on the right third finger was cleaned and bandaged. He was given instructions in care. 4 . F elida smoker - Z87.891 N otes :He is highly motivated not to smoke. We discussed strategies for maintenance of abstinence in times of stress and illness. Plan: * Treatment: * Immunizations: Tetanus and Diphtheria Toxoids Adsorbed : 0.5 mL (Dose No:1) (Route: Intramuscular) given by Lachelle Colbert on Left Arm ???Immunization record has been reviewed and updated. * Procedure Codes: 9 0714 TD VACCINE NO PRSRV >/= 7 [id number] Td (adult) * Preventive Medicine: Counseling: C are goal follow-up plan: Counseling for abnormal BMI given Y es Above Normal BMI Follow-up D ietary management education, guidance, and counseling S moking/Tobacco Use Patient counseled on the dangers of tobacco use and urged to quit. 03/01/2023 * Follow Up: A s Scheduled, May (Reason: OV, Regular check-up) * Images: * Sign off status: Completed true * Provider: Alfonso Hightower MD Date: 03/01/2023 Generated for Haveni ng/Juan/eTransmitting on: 03/03/2024 02:50 PM EST History and Physical Notes * [...] extremities unremark able, no clubbing, cyanosis or edema, Small laceration right third finger without infection LYMPH NODES: no enlarged lymph no deepa,spleen normal RECTAL EXAM: not examined PSYCH: alert, oriented ORAL CAVITY: normal, unremarkable
--- OUTSIDE RECORDS SUMMARY | 2024-05-14 04:26 | XMS_ITS ---
Author Organization Earl Hightower III, MD Address [address] [place] [address] [address] [place] [address] Care Team Providers Care Net Software Engineer Name Role Phone Dr. Earl Hightower III Primary Care Provider [phone] REASON FOR VISIT Message Social History Sex Assigned At : Social History Observation Description Sex Assigned At Male Encounters Encounter Location Date Provider Diagnosis Earl Hightower III, MD [address] [place] [address] [place] [address] 05/14/2024 Earl Hightower Plan Of Treatment Next Appt Details Provider Name:Earl Hightower , 05/21/2025 10:30:00 AM, [address] [place] [address] [place], [address], Progress Notes * James ELLISDOB:1955 ( 68 yo M)Acc No.[id number]:05/14/2024 Patient: James CONN :1955 A ge:68 Y S ex:Male Address:[address] [place] [address], [address] * true * Date: Generated for Printi reina/Fatristag/eTransmitting on: 03/03/2024 02:52 PM EST
--- OUTSIDE RECORDS SUMMARY | 2024-05-18 09:00 | XMS_ITS ---
Author Organization Earl Hightower III, MD Address [address] [place] [address] Care Team Providers Care Activity Aide Name Role Phone Dr. Earl Hightower III Primary Care Provider [phone] Allergies Allergen (clinical drug ingredient) Drug/Non Drug Allergy documented on EMR Reaction Allergy Type Onset Date Status Bee Sting Unknown Allergy Active Results Component Value Reference Range Notes URINE DIP STICK Reviewed date:05/18/2024 02:20:03 PM Interpretation: Performing Lab: Notes/Report: SG 1.010 1.005 - 1.025 pH 6.0 5.0 - 9.0 JACQUI 70 Negative - NIT Negative Negative - PRO 15 Negative - Trace GLU Negative Negative - KET 5 Negative - UBG 0.2 0.1 - 1.8 JAKY Negative 0.2 - 1.3 BLD Negative Negative - Reason For Referral Reason Consult and Treat Diagnosis 1 Right knee pain (M25 .561) Referral Organization Earl Hightower III, MD Referring Provider First Name Earl Referring Provider Last Name Katja Referring Provider Speciality Internal M edicine Referred Provider [facility], Orthopedic Surgeons Referred Provider Specialty Orthopedic S urgery General Notes Leonor Young 06/08/2024 03:38:06 PM > Referral faxed with Progress noteHannah Amber 07/08/2024 10:59:17 AM > Spoke with [facility] stated the patient declined to schedule. Referral will be closed. Referral Priority Routine REASON FOR VISIT Annual Exam Medications Medication SIG (Take, Route, Frequency, Duration) Notes Start Date End Date Status EPINEPHrine 0.3 MG/0.3ML as directed Inj ection use once prn with beesting 03/08/2020 Active Social History Tobacco Use: Social History Observation Description Date Details (start date - stop date) Former Smoker NA - NA Sex Assigned At : Social History Observation Description Sex Assigned At Male Tobacco Control (Standard) Question Answer Notes Tobacco use: Former smoker How long has it been since you last smoked? Grea ter than 10 years Additional Findings: Tobacco non-user Ex-cigaret te smoker AUDIT-C (Standard) Question Answer Notes Did you have a drink contain ing alcohol in the past year? Yes How often did you have six o r more drinks on one occasion in the past year? Less than monthly (1 point) How many drinks did you have on a typical day when you were drinking in the past year? 1 or 2 drinks (0 point) How often did you have a dri nk containing alcohol in the past year? Never (0 point) Points 1 Interpretation Negative Problems Problem Type SNOMED Code ICD Code Onset Dates Problem Status W/U Status Risk Notes Problem [id number] Acute pain of right knee (M25.561) Active confirmed He has had pain with use in his right knee for a week. It does not appear to be gout. There is a small effusion, but no erythema. There is mild to moderate pain to weighttbearing. He was referred to orthopedics and imaging was ordered. Vital Signs Temperature 98.1 degrees Fahrenheit 05/19/19 25 Blood pressure systolic 125 mm Hg 05/19/19 25 Blood pressure diastolic 69 mm Hg 025 Heart Rate 68 /min 05/18/2024 Height 69.75 in 05/18/2024 Weight 184 lbs 05/18/2024 BMI 26.59 kg/m2 05/18/2024 Encounters Encounter Location Date Provider Diagnosis Earl Hightower III, MD [address] [place] [address] DR GARCÍA, ARMANDO [phone] 05/18/2024 Earl Hightower Acute pain of right knee M25.561 ; Hearing loss, unspecified hearing loss type, unspecified laterality H91.90 ; Hernia K46.9 ; Hyperlipidemia E78.5 ; Overweight E66.3 and Former smoker Z87.891 Assessments Encounter Date Diagnosis (ICD Code) Assessment Notes Treat ment Notes Treatment Clinical Notes 05/18/2024 Acute pain of right knee (ICD-10 - M25.561) He has had pain with use in his right knee for a week. It does not appear to be gout. There is a small effusion, but no erythema. There is mild to moderate pain to weighttbearing. He was referred to orthopedics and imaging was ordered. 05/18/2024 Hearing loss, unspecified hearing loss type, unspecified laterality (ICD-10 - H91.90) His hearing loss is unchanged. Declined an offer referral to ENT for audiology. 05/18/2024 Hernia (ICD-10 - K46.9) He has seen a surgeon about her running wall hernia. The he has decided not to have the repair done at this time. 05/18/2024 Hyperlipidemia (ICD-10 - E78.5) His lipids have been stable. A fasting lipid profile has been ordered prior to his next visit. 05/18/2024 Overweight (ICD-10 - E66.3) His body mass index is 26. We discussed her weight loss strategy. I recommended losing one half of a pound per week to regular exercise and a diet restricted in fat calories and sodium. 05/18/2024 Former smoker (ICD-1 0 - Z87.891) He is highly motivated not to smoke. We discussed strategies for maintenance of abstinence in times of stress and illness. Plan Of Treatment Medication Medication Name Sig Start Date Stop Date Notes EPINEPHrine 0.3 MG/0.3ML as directed Inj ection use once prn with beesting 03/08/2020 Referrals Referral Date Details 05/18/2024 05/18/2024, Consult and Treat, Orthopedic Sur[facility] Next Appt Details Follow Up: 6 Weeks, Reason: Telehealth Provider Name:Earl Hightower , 05/21/2025 10:30:00 AM, [address] [place] [address] D[place], [place], [phone], Progress Notes * Jignesh ELLIS:1955 ( 68 yo M)Acc No.[id number]:05/18/2024 Progress Notes Patient: James CONN Provider: Alfonso Hightower MD :1955 A ge:68 Y S ex:Male Date:05/18/2024 Address:[address] [place], [place] [id number] Subjective: * Chief Complaints: * A nnual Exam * HPI: D epression Screening: Marita zambrano returns to the office at the age of 68 for his annual physical examination. He has been healthy and well. A new complaint was pain in his right knee with use and tightness in his throat, hamstrings. This has been present for a week. Marita zambrano has had no relief with medications. On examination there was a slight effusion, but no significant crepitus. There was no erythema. He was referred to orthopedics for evaluation and treatment. He admits to nocturia once per night and we have discussed lifestyle modifications hhe could make to reduce this. The right inguinal hernia is small and present and does not bother him at all. I have offered to schedule him for a colonoscopy. He has adamantly declined saying he is not interested in having a colonoscopy now are, however. PHQ-9 L ittle interest or pleasure in doing things?Not at all F eeling down, depressed, or hopeless N ot at all T rouble falling or staying asleep, or sleeping too much M ore than half the days F eeling tired or having little energy S everal days P oor appetite or overeating N ot at all F eeling bad about yourself or that you are a failure, or have let yourself or your family down N ot at all T rouble concentrating on things, such as reading the newspaper or watching television S everal days M oving or speaking so slowly that other people could have noticed; or the opposite, being so fidgety or restless that you have been moving around a lot more than usual N ot at all T houghts that you would be better off or of hurting yourself in some way N ot at all T otal Score 4 I nterpretation M inimal Depression C OVID-19 Screening: Questions H ave you had any new onset fever, chills, cough, congestion, sore throat, shortness of breath, muscle aches? N o F all Risk Screening: Fall History H ave you had any falls with injury in the past year? N o H ave you had two or more falls in the past year? N o F all Risk Assessment: N o falls in the past year S JALYN Questions: SDOH Questions I n the past year have you been worried about losing your housing? N o I n the past year have you or any family members you live with been unable to get any of the following when it was really needed? Check all that apply: N one * ROS: G eneral/Constitutional: pain R ight knee for a week, otherwise only normal aches and pains. C [...] enies. D iarrhea d enies. H eartburn o ccasional. N ausea d enies. R ectal bleeding d enies. V omiting d enies. H ematology: bruising d enies. p etechiae d enies. S wollen glands n one have been noted. G enitourinary: Frequent urination o nce a night. M usculoskeletal: Muscle aches d enies. P ainful joints R ight knee.?Sciatica d enies. W eakness d enies. S kin: Itching d enies. R bong d enies. S kin lesion(s)?denies. N eurologic: Difficulty speaking d enies. D izziness d enies.?Headache d enies. L ow back pain d enies. P sychiatric: Depressed mood d enies. * Medical History: * Surgical History: D eviated septum 1985both elbow surgery 1985, 1978fracture right ulnar 1980spenile fracture 2015 * Hospitalization/Major Diagno stic Procedure: N o [...] Social History: T obacco Use: T obacco Control (Standard) T obacco use: F ormer smoker H ow long has it been since you last smoked??Greater than 10 years A dditional Findings: Tobacco non-user E x-cigarette smoker D rugs/Alcohol: D rugs H ave you used drugs other than those for medical reasons in the past 12 months? N o D rug/Alcohol: A CRYSTAL-C (Standard) D id you have a drink containing alcohol in the past year? Y es H ow often did you have six or more drinks on one occasion in the past year? L ess than monthly (1 point) H ow many drinks did you have on a typical day when you were drinking in the past year? 1 or 2 drinks (0 point) H ow often did you have a drink containing alcohol in the past year? N ever (0 point) P oints 1 I nterpretation N egative Marita zambrano was born in [place], [place] and now lives in [facility]. 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 * P ast Orders: Lab:URINE DIP STICK * Collection Date 05/18/2024 05/17/2023 05/11/2022 Order Date 05/18/2024 05/17/2023 05/11/2022 SG 1.010 (Ref Range: 1.005 - 1.025) 1.020 (Ref Range: 1.005 - 1.025) 1.015 (Ref Range: 1.005 - 1.025) pH 6.0 (Ref Range: 5.0 - 9.0) 5.0 (Ref Range: 5.0 - 9.0) 5.0 (Ref Range: 5.0 - 9.0) JACQUI 70 (Ref Range: Negative -) Negative (Ref Range: Negative -) Neg (Ref Range: Negative -) NIT Negative (Ref Range: Negative -) Negative (Ref Range: Negative -) Neg (Ref Range: Negative -) PRO 15 (Ref Range: Negative - Trace) 15 (Ref Range: Negative - Trace) Neg (Ref Range: Negative - Trace) GLU Negative (Ref Range: Negative -) Negative (Ref Range: Negative -) Neg (Ref Range: Negative -) KET 5 (Ref Range: Negative -) Negative (Ref Range: Negative -) Neg (Ref Range: Negative -) UBG 0.2 (Ref Range: 0.1 - 1.8) 0.2 (Ref Range: 0.1 - 1.8) 0.2 (Ref Range: 0.1 - 1.8) JAKY Negative (Ref Range: 0.2 - 1.3) Negative (Ref Range: 0.2 - 1.3) Neg (Ref Range: 0.2 - 1.3) BLD Negative (Ref Range: Negative -) Negative (Ref Range: Negative -) Neg (Ref Range: Negative -) Menstrating NR NR N/A * Lab:Complete Blood Count Aut o Diff * Collection Date 05/15/2024 05/24/2023 05/04/2022 Collection Time 09:32 AM 09:00 AM 09:48 AM Order Date 05/15/2024 05/24/2023 05/04/2022 White Blood Count 5.5 (Ref Range: 4.8-10.8 X10*3/uL) 5.3 (Ref Range: 4.8-10.8 X10*3/uL) 5.4 (Ref Range: 4.8-10.8 X10*3/uL) Red Blood Count 4.56 L (Ref Range: 4.60-5.80 X10*6/uL) 4.68 (Ref Range: 4.60-5.80 X10*6/uL) 4.60 (Ref Range: 4.60-5.80 X10*6/uL) Hemoglobin 14.3 (Ref Range: 14.0-18.0 g/dl) 14.7 (Ref Range: 14.0-18.0 g/dl) 14.3 (Ref Range: 14.0-18.0 g/dl) Hematocrit 41.9 L (Ref Range: 42.0-52.0 %) 42.5 (Ref Range: 42.0-52.0 %) 41.5 L (Ref Range: 42.0-52.0 %) Mean Corpuscular Volume 91.9 (Ref Range: 80.0-98.0 fL) 90.8 (Ref Range: 80.0-98.0 fL) 90.2 (Ref Range: 80.0-98.0 fL) Mean Corpuscular Hemoglobin 31.4 (Ref Range: 27.0-33.0 pg) 31.4 (Ref Range: 27.0-33.0 pg) 31.1 (Ref Range: 27.0-33.0 pg) Mean Corpuscular HGB Conc 34.1 (Ref Range: 31.0-36.0 g/dl) 34.6 (Ref Range: 31.0-36.0 g/dl) 34.5 (Ref Range: 31.0-36.0 g/dl) Red Cell Distribution Width 12.7 (Ref Range: 11.0-16.0 %) 12.9 (Ref Range: 11.0-16.0 %) 12.6 (Ref Range: 11.0-16.0 %) Platelet Count 170 (Ref Range: 160-400 X10*3/uL) 180 (Ref Range: 160-400 X10*3/uL) 188 (Ref Range: 160-400 X10*3/uL) Mean Platelet Volume 10.6 (Ref Range: 9.4-12.4 fL) 10.6 (Ref Range: 9.4-12.4 fL) 10.3 (Ref Range: 9.4-12.4 fL) Neutrophils Percent Auto 58.9 (Ref Range: 45-73 %) 56.3 (Ref Range: 45-73 %) 57.5 (Ref Range: 45-73 %) Imm Gran Pct Auto 0.2 (Ref Range: 0.0-0.4 %) 0.2 (Ref Range: 0.0-0.4 %) 0.2 (Ref Range: 0.0-0.4 %) Lymphocytes Percent Auto 28.9 (Ref Range: 20-40 %) 33.6 (Ref Range: 20-40 %) 32.0 (Ref Range: 20-40 %) Monocytes Percent Auto 7.1 (Ref Range: 2-11 %) 5.6 (Ref Range: 2-11 %) 6.4 (Ref Range: 2-11 %) Eosinophils Percent Auto 4.5 H (Ref Range: 0-4 %) 3.9 (Ref Range: 0-4 %) 3.3 (Ref Range: 0-4 %) Basophils Percent Auto 0.4 (Ref Range: 0-2 %) 0.4 (Ref Range: 0-2 %) 0.6 (Ref Range: 0-2 %) NRBC Pct Auto 0.0 (Ref Range: 0.0-0.2 /100WBC) 0.0 (Ref Range: 0.0-0.2 /100WBC) 0.0 (Ref Range: 0.0-0.2 /100WBC) Neutrophils Absolute Auto 3.2 (Ref Range: 2.0-8.3 x10*3/uL) 3.0 (Ref Range: 2.0-8.3 x10*3/uL) 3.1 (Ref Range: 2.0-8.3 x10*3/uL) Imm Gran Abs Auto 0.01 (Ref Range: 0.00-0.03 X10*3/uL) 0.01 (Ref Range: 0.00-0.03 X10*3/uL) 0.01 (Ref Range: 0.00-0.03 X10*3/uL) Lymphocytes Absolute Auto 1.6 (Ref Range: 1.2-4.9 X10*3/uL) 1.8 (Ref Range: 1.2-4.9 X10*3/uL) 1.7 (Ref Range: 1.2-4.9 X10*3/uL) Monocytes Absolute Auto 0.4 (Ref Range: 0.1-1.2 X10*3/uL) 0.3 (Ref Range: 0.1-1.2 X10*3/uL) 0.4 (Ref Range: 0.1-1.2 X10*3/uL) Eosinophils Absolute Auto 0.3 (Ref Range: 0.0-0.4 X10*3/uL) 0.2 (Ref Range: 0.0-0.4 X10*3/uL) 0.2 (Ref Range: 0.0-0.4 X10*3/uL) Basophils Absolute Auto 0.0 (Ref Range: 0.0-0.2 X10*3/uL) 0.0 (Ref Range: 0.0-0.2 X10*3/uL) 0.0 (Ref Range: 0.0-0.2 X10*3/uL) NRBC Abs Auto 0.000 (Ref Range: 0.0-0.012 X10*3/uL) 0.000 (Ref Range: 0.0-0.012 X10*3/uL) 0.000 (Ref Range: 0.0-0.012 X10*3/uL) * Lab:Deyvi Leslie l Fast * Collection Date 05/15/2024 05/24/2023 05/04/2022 Collection Time 09:32 AM 09:00 AM 09:48 AM Order Date 05/15/2024 05/24/2023 05/04/2022 Sodium 139 (Ref Range: 135-145 mmol/L) 140 (Ref Range: 135-145 mmol/L) 138 (Ref Range: 135-145 mmol/L) Bilirubin Total 0.9 (Ref Range: 0.0-1.0 mg/dL) 1.0 (Ref Range: 0.0-1.0 mg/dL) 1.3 H (Ref Range: 0.0-1.0 mg/dL) Aspartate Amino Transferase 22 (Ref Range: 5-37 U/L) 20 (Ref Range: 5-37 U/L) 24 (Ref Range: 5-37 U/L) Alanine Aminotransferase 18 (Ref Range: 0-40 U/L) 18 (Ref Range: 0-40 U/L) 27 (Ref Range: 0-40 U/L) Total Protein 6.8 (Ref Range: 6.5-8.0 g/dL) 7.2 (Ref Range: 6.5-8.0 g/dL) 6.9 (Ref Range: 6.5-8.0 g/dL) Albumin Level 3.9 (Ref Range: 3.5-5.0 g/dL) 3.9 (Ref Range: 3.5-5.0 g/dL) 4.0 (Ref Range: 3.5-5.0 g/dL) Alkaline Phosphatase 60 (Ref Range: 39-117 U/L) 58 (Ref Range: 39-117 U/L) 67 (Ref Range: 39-117 U/L) Potassium 4.1 (Ref Range: 3.3-5.1 mmol/L) 4.0 (Ref Range: 3.3-5.1 mmol/L) 4.2 (Ref Range: 3.3-5.1 mmol/L) Chloride 108 (Ref Range: 96-108 mmol/L) 106 (Ref Range: 96-108 mmol/L) 103 (Ref Range: 96-108 mmol/L) Carbon Dioxide 25 (Ref Range: 22-29 mmol/L) 27 (Ref Range: 22-29 mmol/L) 28 (Ref Range: 22-29 mmol/L) Anion Gap 10 L (Ref Range: 12-20) 11 L (Ref Range: 12-20) 11 L (Ref Range: 12-20) Blood Urea Nitrogen 17 H (Ref Range: 9-16 mg/dL) 14 (Ref Range: 9-16 mg/dL) 14 (Ref Range: 9-16 mg/dL) Creatinine 0.87 (Ref Range: 0.5-1.4 mg/dL) 0.94 (Ref Range: 0.5-1.4 mg/dL) 0.95 (Ref Range: 0.5-1.4 mg/dL) Estimated Glomerular Filt Rate > 60 > 60 > 60 Glucose Fasting 84 (Ref Range: 60-99 mg/dL) 87 (Ref Range: 60-99 mg/dL) 87 (Ref Range: 60-99 mg/dL) Calcium 8.8 (Ref Range: 8.4-10.2 mg/dL) 9.0 (Ref Range: 8.4-10.2 mg/dL) 8.8 (Ref Range: 8.4-10.2 mg/dL) * Lab:Lipid Panel * Collection Date 05/15/2024 05/24/2023 05/04/2022 Collection Time 09:32 AM 09:00 AM 09:48 AM Order Date 05/15/2024 05/17/2023 05/04/2022 Triglycerides 164 H (Ref Range: <150 mg/dL) 162 H (Ref Range: <150 mg/dL) 175 (Ref Range: mg/dL) Cholesterol 196 (Ref Range: <200 mg/dL) 188 (Ref Range: <200 mg/dL) 216 (Ref Range: mg/dL) LDL Cholesterol Calculated 129 H (Ref Range: <100 mg/dL) 122 H (Ref Range: <100 mg/dL) 147 (Ref Range: mg/dl) HDL Cholesterol 35 L (Ref Range: >40 mg/dL) 34 L (Ref Range: >40 mg/dL) 34 (Ref Range: mg/dL) * Lab:Prostate Specific Antige n * Collection Date 05/15/2024 05/24/2023 05/04/2022 Collection Time 09:32 AM 09:00 AM 09:48 AM Order Date 05/15/2024 05/24/2023 05/04/2022 Prostate Specific Antigen 2.61 (Ref Range: <0.05-4.0 ng/mL) 2.42 (Ref Range: <0.05-4.0 ng/mL) 2.32 (Ref Range: <0.05-4.0 ng/mL) * Examination: G eneral Examination: GENERAL APPEARANCE: p leasant, well nourished, well developed, in no acute distress, calm and relaxed, overweight, man. HEAD: a traumatic, normocephalic. EYES: e jennifer, perrla, anicteric, conjugate. EARS: N ormal anatomy with mild hearing loss. NOSE: s eptum intact. ORAL CAVITY: n [...] no organomegaly, no mass, overweight. RECTAL EXAM: , normal tone, no external hemorrhoids, no masses palpable, no melena, no red blood, prostate normal, stool guaiac negative. MUSCULOSKELETAL: S mall effusion, right knee, no crepitus, no edema, Moderate pain to range of motion. PERIPHERAL PULSES: n ormal. NEUROLOGIC: a lert and oriented, cranial nerves 2-12 grossly intact, deep tendon reflexes 2+ symmetrical, motor strength normal upper and lower extremities, sensory exam intact. PSYCH: a lert, oriented. Assessment: * Assessment: 1. A cute pain of right knee - M25.561 (Primary) N otes :He has had pain with use in his right knee for a week. It does not appear to be gout. There is a small effusion, but no erythema. There is mild to moderate pain to weighttbearing. He was referred to orthopedics and imaging was ordered. 2 . H earing loss, unspecified hearing loss type, unspecified laterality - H91.90 N otes :His hearing loss is unchanged. Declined an offer referral to ENT for audiology. 3 . H ernia - K46.9 N otes :He has seen a surgeon about her running wall hernia. The he has decided not to have the repair done at this time. 4 . H yperlipidemia - E78.5 N otes :His lipids have been stable. A fasting lipid profile has been ordered prior to his next visit. 5 . O verweight - E66.3 N otes :His body mass index is 26. We discussed her weight loss strategy. I recommended losing one half of a pound per week to regular exercise and a diet restricted in fat calories and sodium. 6 . F ormer smoker - Z87.891 N otes :He is highly motivated not to smoke. We discussed strategies for maintenance of abstinence in times of stress and illness. Plan: * Treatment: * Labs: * L ab: URINE DIP STICK (Collection Date & Time - 05/18/2024) Value Reference Range S G 1.010 1.005 - 1.025 * p H 6.0 5.0 - 9.0 * L EU 70 Negative - * N IT Negative Negative - * P RO 15 Negative - Trace * G LAVERNE Negative Negative - * K ET 5 Negative - * U BG 0.2 0.1 - 1.8 * B IL Negative 0.2 - 1.3 * B LD Negative Negative - * Procedure Codes: 8 1002 URINE-NO [id number] TEST FOR BLOOD, FECES * Preventive Medicine: Counseling: C are goal follow-up plan: Counseling for abnormal BMI given Y es Above Normal BMI Follow-up D ietary needs education S moking/Tobacco Use Patient counseled on the dangers of tobacco use and urged to quit. 0 05/18/2024 * Follow Up: 6 Weeks (Reason: Telehealth) * Images: * Sign off status: Completed true * Provider: Alfonso Hightower MD Date: 0 05/18/2024 Generated for Noa huang/Juan/eTransmitting on: 1 03/03/2024 02:51 PM EST History and Physical Notes * HPI (History of Present Illness) Category Sub-Category Detail Notes Depression Screening PHQ-9 Little inte rest or pleasure in doing things: Not at all Feeling down, depressed, or hopeless: No t at all Trouble falling or staying a sleep, or sleeping too much: More than half the days Feeling tired or having little energy: S everal days Poor appetite or overeating: Not at all Feeling bad about yourself o r that you are a failure, or have let yourself or your family down: Not at all Trouble concentrating on thi ngs, such as reading the newspaper or watching television: Several days Moving or speaking so slowly that other people could have noticed; or the opposite, being so fidgety or restless that you have been moving around a lot more than usual: Not at all Thoughts that you would be b koki off or of hurting yourself in some way: Not at all Total Score: 4 Interpretation: Minimal Depression Fall Risk Screening Fall History Have you had any falls with injury in the past year?: No Have you had two or more falls in the year?: No Fall Risk Assessment:: No falls in the p year COVID-19 Screening Questions Have you had any new onset fever, chills, cough, congestion, sore throat, shortness of breath, muscle aches?: No SDOH Questions SDOH Questions In the past year have you been worried about losing your housing?: No In the past year have you or any family members you live with been unable to get any of the following when it was really needed? Check all that apply:: None Examination Category Sub-Category Detail Notes General Examination GENERAL APPEARANCE: pleasant , well nourished, well developed, in no acute distress, calm and relaxed, overweight, man HEAD: atraumatic, normocep halic EYES: eomi, perrla, anicte dale, conjugate EARS: Normal anatomy with mild hearing loss NOSE: septum intact NECK/THYROID: no jugular venous [...] BREASTS: no masses palpable b ilaterally MUSCULOSKELETAL: Small effusion, righ t knee, no crepitus, no edema, Moderate pain to range of motion LYMPH NODES: no enlarged lymph no deepa,spleen normal RECTAL EXAM: , normal tone, no ex ternal hemorrhoids, no masses palpable, no melena, no red blood, prostate normal, stool guaiac negative PSYCH: alert, oriented ORAL CAVITY: normal, unremarkable Consultation Request Notes Referral Date Referring Provider Referred Provider Not marine 05/18/2024 Earl Hightower [facility], Orthopedic Surgeons Consult and Treat
--- OUTSIDE RECORDS SUMMARY | 2024-06-30 05:30 | XMS_ITS ---
Author Organization Earl Hightower III, MD Address [address] [place] [address] [address] [place] [address] Care Team Providers Care Protective Signal Repairer Name Role Phone Dr. Earl Hightower III Primary Care Provider [phone] REASON FOR VISIT Telehealth Social History Sex Assigned At : Social History Observation Description Sex Assigned At Male Encounters Encounter Location Date Provider Diagnosis Earl Hightower III, MD [address] [place] [address] [place] [address] 06/30/2024 Earl Hightower Plan Of Treatment Next Appt Details Provider Name:Earl Hightower , 05/21/2025 10:30:00 AM, [address] [place] [address] [place], [address], Progress Notes * James ELLISDOB:1955 ( 69 yo M)Acc No.[id number]:06/30/2024 Patient: James CONN Provider: Alfonso Hightower MD :1955 A ge:69 Y S ex:Male Date:06/30/2024 Address:[address] [place] [address] [id number] Subjective: * Chief Complaints: * 1 . Telehealth. * Medical History: Objective: * Vitals: Assessment: Plan: * Treatment: * Images: * The named appointment provid er may or may not be the originator of this progress note, and it is not deemed complete until electronically signed by the appointment provider. Sign off status: Pending * Provider: Alfonso Hightower MD Date: 0 06/30/2024 Generated for Noa huang/Juan/Jaren on: 1 03/03/2024 02:51 PM EST
--- OUTSIDE RECORDS SUMMARY | 2024-07-22 04:18 | XMS_ITS ---
Author Organization Earl Hightower III, MD Address [address] [place] [address] Care Team Providers Care Lead Printer Name Role Phone Dr. Earl Hightower III Primary Care Provider Results Component Value Reference Range Notes PSA Free and Total Reviewed date:11/17/2024 02:38:21 PM Interpretation: Performing Lab:[facility], [address] [place] [phone] Notes/Report: Prostate Specific Ag Total 2.6 < OR = 4.0 ng/ mL Percent Free Prostate Spec Ag 31 >25 % (calc) PSA(ng/mL) Free PSA(%) Estimated(x) Probability of Cancer(as%) 0-2.5 (*) Approx. 1 2.6-4.0(1) 0-27(2) 24(3) 4.1-10(4) 0-10 56 11-15 28 16-20 20 21-25 16 >or =26 8 >10(+) N/A >50 References:(1)Soheila et al.:Urology 60: 469-474 (2002) (2)Soheila et al.:J.Urol 168: 922-925 (2002) Free PSA(%) Sensitivity(%) Specificity(%) < or = 25 85 19 < or = 30 93 9 (3)Catalona et al.:ALMA 277: 4064-9410 (1996) (4)Catalona et al.:ALMA 279: 8158-3374 (1997) (x)These estimates vary with age, ethnicity, family history and JANELLE results. (*)The diagnostic usefulness of % Free PSA has not been established in patients with total PSA below 2.6 ng/mL (+)In men with PSA above 10 ng/mL, prostate cancer risk is determined by total PSA alone. The Total PSA value from this assay system is standardized against the equimolar PSA standard. The test result will be approximately 20% higher when compared to the WHO-standardized Total PSA (Siemens assay). Comparison of serial PSA results should be interpreted with this fact in mind. PSA was performed using the Lyubov Lockney Immunoassay method. Values obtained from different assay methods cannot be used interchangeably. PSA levels, regardless of value, should not be interpreted as absolute evidence of the presence or absence of disease. THIS TEST WAS PERFORMED AT: [facility] [address] [phone] ADE ROBINS MD Free Prostate Spec Ag 0.8 Urine Culture Reviewed date:11/17/2024 02:38:21 PM Interpretation: Performing Lab:[facility], [address] [place] [phone] Notes/Report: Urine Culture No growth. REASON FOR VISIT ? Urine Culture Social History Sex Assigned At : Social History Observation Description Sex Assigned At Male Encounters Encounter Location Date Provider Diagnosis Earl Hightower III, MD [address] [place] [address] [place] [address] 07/22/2024 Earl Hightower UTI symptoms R39.9 and BPH (benign prostatic hyperplasia) N40.0 Assessments Encounter Date Diagnosis (ICD Code) Assessment Notes Treatment Notes Treatment Clinical Notes 07/22/2024 UTI symptoms (ICD-10 - R39.9) 07/22/2024 BPH (benign prostatic hyperplasia) (ICD-10 - N40.0) Plan Of Treatment Pending Test Test Name Order Date URINALYSIS (UA) 07/22/2024 Next Appt Details Provider Name:Earl Hightower , 05/21/2025 10:30:00 AM, [address] [place] [address] [address], [place], [address], Progress Notes * James ELLISDOB:1955 ( 69 yo M)Acc No.[id number]:07/22/2024 Patient: James CONN :1955 A ge:69 Y S ex:Male Address:[address] [place] [address] Subjective: * Chief Complaints: * ? Urine Culture * Medical History: * Surgical History: * Hospitalization/Major Diagno stic Procedure: * Medications: Objective: * Vitals: * Physical Examination: Assessment: * Assessment: 1. U TI symptoms - R39.9 2 . B PH (benign prostatic hyperplasia) - N40.0? Plan: * Treatment: 2. B PH (benign prostatic hyperplasia) L AB: URINALYSIS (UA) L AB: PSA Free and Total L AB: Urine Culture * Procedure Codes: * true * Date: Generated for Noa huang/Juan/eTpatismitting on: 03/03/2024 02:52 PM EST
--- OUTSIDE RECORDS SUMMARY | 2024-11-12 04:03 | XMS_ITS ---
Author Organization Earl Hightower III, MD Address [address] [place] [address] [address] [place] [address] Care Team Providers Care Instrument Repairer Name Role Phone Dr. Earl Hightower III Primary Care Provider Results Component Value Reference Range Notes Urine Culture Reviewed date:11/17/2024 02:38:21 PM Interpretation: Performing Lab:[facility], [address] [place] [phone] Notes/Report: Urine Culture No growth. REASON FOR VISIT Request appointment Social History Sex Assigned At : Social History Observation Description Sex Assigned At Male Encounters Encounter Location Date Provider Diagnosis Earl Hightower III, MD [address] [place] [address] [address] [place] [address] 11/12/2024 Earl Hightower Hyperlipidemia E78.5 ; Hematuria, unspecified R31.9 ; Gross hematuria R31.0 and UTI symptoms R39.9 Assessments Encounter Date Diagnosis (ICD Code) Assessment Notes Treat ment Notes Treatment Clinical Notes 11/12/2024 Hyperlipidemia (ICD-10 - E78.5) 11/12/2024 Hematuria, unspecified (ICD-10 - R31.9) 11/12/2024 Gross hematuria (ICD-10 - R31.0) 11/12/2024 UTI symptoms (ICD-10 - R39.9) Plan Of Treatment Pending Test Test Name Order Date CBC w DIFF 11/12/2024 PROTHROMBIN TIME (PT, INR) 11/12/2024 PARTIAL THROMBOPLASTIN TIME (PTT) 2024 URINALYSIS (UA) 11/12/2024 Next Appt Details Provider Name:Earl Hightower , 05/21/2025 10:30:00 AM, [address] [place] [address] , [address], [address], Progress Notes * ELLIS, JamesDOB:1955 ( 69 yo M)Acc No.[id number]:11/12/2024 Patient: James CONN :1955 A ge:69 Y S ex:Male Address:[address] [place] [address], [address] Subjective: * Chief Complaints: * R equest appointment * Medical History: * Surgical History: * Hospitalization/Major Diagno stic Procedure: * Medications: Objective: * Vitals: * Physical Examination: Assessment: * Assessment: 1. H yperlipidemia - E78.5 2 . H ematuria, unspecified - R31.9 ?3. G ross hematuria - R31.0 4 . U TI symptoms - R39.9 Plan: * Treatment: Value Reference Range U rine Culture No growth. - 2.?Gross hematuria?LAB: CBC w DIFF ?LAB: PROTHROMBIN TIME (PT, INR) ?LAB: PARTIAL THROMBOPLASTIN TIME (PTT) ?LAB: URINALYSIS (UA) ?LAB: Urine Culture (Collection Date & Time - 11/12/2024 01:03 AM)* Value Reference Range U rine Culture No growth. - 3.?UTI symptoms?LAB: CBC w DIFF ?LAB: PROTHROMBIN TIME (PT, INR) ?LAB: PARTIAL THROMBOPLASTIN TIME (PTT) ?LAB: URINALYSIS (UA) ?LAB: Urine Culture (Collection Date & Time - 11/12/2024 01:03 AM)* Value Reference Range U rine Culture No growth. - * Procedure Codes: * true * Date: Generated for Noa huang/Juan/Jaren on: 03/03/2024 02:52 PM EST
--- OUTSIDE RECORDS SUMMARY | 2024-11-17 09:15 | XMS_ITS ---
Author Organization Earl Hightower III, MD Address [address] [place] [address] Care Team Providers Care Technician Support Engineer Name Role Phone Dr. Earl Hightower III Primary Care Provider [phone] Allergies Allergen (clinical drug ingredient) Drug/Non Drug Allergy documented on EMR Reaction Allergy Type Onset Date Status Bee Sting Unknown Allergy Active Reason For Referral Reason Evaluate and Treat Passed 2 blood clots in urine Diagnosis 1 BPH (benign prostati c hyperplasia) (N40.0) Diagnosis 2 Erectile dysfunction (N52.9) Diagnosis 3 Gross hematuria (R31 .0) Referral Organization Earl Hightower III, MD Referring Provider First Name Earl Referring Provider Last Name Katja Referring Provider Speciality Internal M edicine Referred Provider Mohan Orona, ([place]) Referred Provider Specialty Urology General Notes D, 12/22/2024 10:04:50 AM > Referral and progress note faxed without KUB U/S results as patient is not scheduled until 01/01/25, D, Leonor 01/01/2025 10:55:33 AM > Patient was contacted by Dr. Orona's office multiple times with no success appointment was scheduled with Dr. Hightower office. Referral Priority Routine Referral Appointment Date 03/11/2025 REASON FOR VISIT Blood clot in urine, Benign prostatic hypertrophy, Hyperlipidemia, Hearing loss, Right knee pain Medications Medication SIG (Take, Route, Frequency, Duration) [...] Additional Findings: Tobacco non-user Ex-cigaret te smoker Problems Problem Type SNOMED Code ICD Code Onset Dates Problem Status W/U Status Risk Notes Problem Gross hematuria (582749768) Gross hematuria (R31.0) Active confirmed He had one episode of clots in his urine. He passed 2 small clots. He has had no renal colic. His urine has been normal yellow in color. Bladder ultrasound is pending. Vital Signs Temperature 98.4 degrees Fahrenheit 11/18/19 25 Blood pressure systolic 129 mm Hg 11/18/19 25 Blood pressure diastolic 82 mm Hg 025 Heart Rate 65 /min 11/17/2024 Height 69.75 in 11/17/2024 Weight 180 lbs 11/17/2024 BMI 26.01 kg/m2 11/17/2024 Encounters Encounter Location Date Provider Diagnosis Earl Hightower III, MD [address] [place] [address] [place] [address] 11/17/2024 Earl Hightower Gross hematuria R31. 0 ; Overweight E66.3 ; Former smoker Z87.891 ; BPH (benign prostatic hyperplasia) N40.0 ; Hyperlipidemia E78.5 ; Erectile dysfunction N52.9 and Hearing loss, unspecified hearing loss type, unspecified laterality H91.90 Assessments Encounter Date Diagnosis (ICD Code) Assessment Notes Treat ment Notes Treatment Clinical Notes 11/17/2024 Gross hematuria (ICD-10 - R31.0) He had one episode of clots in his urine. He passed 2 small clots. He has had no renal colic. His urine has been normal yellow in color. Bladder ultrasound is pending. 11/17/2024 Overweight (ICD-10 - E66.3) His body mass index is 26. We discussed her weight loss strategy. I recommended losing one half of a pound per week to regular exercise and a diet restricted in fat calories and sodium. 11/17/2024 Former smoker (ICD-1 0 - Z87.891) He is highly motivated not to smoke. We discussed strategies for maintenance of abstinence in times of stress and illness. 11/17/2024 BPH (benign prostati c hyperplasia) (ICD-10 - N40.0) He says he rises from sleep about once a night sometimes twice depending upon fluid intake. We reviewed lifestyle modifications he could make to reduce nocturia. 11/17/2024 Hyperlipidemia (ICD-10 - E78.5) His lipids have been stable. A fasting lipid profile has been ordered prior to his next visit. 11/17/2024 Erectile dysfunction (ICD-10 - N52.9) This problem has been addressed. This medication was effective. 11/17/2024 Hearing loss, unspecified hearing loss type, unspecified laterality (ICD-10 - H91.90) His hearing loss is unchanged. Declined an offer referral to ENT for audiology. Plan Of Treatment Medication Medication Name Sig Start Date Stop Date Notes EPINEPHrine 0.3 MG/0.3ML as directed Inj ection use once prn with beesting 03/08/2020 Pending Test Test Name Order Date US URINARY BLADDER 11/17/2024 US renal BI 11/17/2024 Referrals Referral Date Details 11/17/2024 11/17/2024, Evaluate and Treat Passed 2 blood clots in urine, (Latesha) Mohan Orona Next Appt Details Follow Up: 3 Weeks, Reason: Office visit Provider Name:Earl Hightower , 05/21/2025 10:30:00 AM, [address] [place] [address] DINAH WILKES, [place], [address], Progress Notes * James ELLISDOB:1955 ( 69 yo M)Acc No.[id number]:11/17/2024 Progress Notes Patient: James CONN Provider: Alfonso Hightower MD :1955 A ge:69 Y S ex:Male Date:11/17/2024 Address:[address] [place] [address], [id number] Subjective: * Chief Complaints: * B lood clot in urineBenign prostatic hypertrophyHyperlipidemiaHearing lossRight knee pain * HPI: C OVID-19 Screenin week ago without any urinary symptoms he noted 2 small blood clots in his urine. They were formed and the urine was otherwise yellow. He has had no such symptoms before or after. He denies any discomfort with urinating. He does not have a history of genitourinary malignancy, nephrolithiasis, ureterolithiasis or prostate disorders other than benign prostatic enlargement. I ordered an ultrasound of his bladder and ureters and kidneys. He will be referred to urology. Depending upon the results of the ultrasound he may need urine cytology. Questions H ave you had any new onset fever, chills, cough, congestion, sore throat, shortness of breath, muscle aches? N o * ROS: G eneral/Constitutional: pain o nly [...] surgery 1985, 1978fracture right ulnar spenile fracture 2015 * [...] dditional Findings: Tobacco non-user E x-cigarette smoker Marita zambrano was born in [place], [place] and now lives in [facility]. 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 * P ast Orders: Lab:Urine Culture * Collection Date 11/12/2024 07/28/2024 02/11/2020 Collection Time 01:03 AM 07:37 AM Order Date 11/12/2024 07/22/2024 02/11/2020 Urine Culture No growth. No growth. NR Clinical Info: Please do culture an d sensitivity,PLEASE FAX COMPLETED RESULTS TO [phone] PLEASE FAX COMPLETED RESULTS TO [phone] * Lab:Complete Blood Count Aut o Diff * Collection Date 11/12/2024 05/15/2024 05/24/2023 Collection Time 01:07 PM 09:32 AM 09:00 AM Order Date 11/12/2024 05/15/2024 05/24/2023 White Blood Count 6.4 (Ref Range: 4.8-10.8 X10*3/uL) 5.5 (Ref Range: 4.8-10.8 X10*3/uL) 5.3 (Ref Range: 4.8-10.8 X10*3/uL) Red Blood Count 4.40 L (Ref Range: 4.60-5.80 X10*6/uL) 4.56 L (Ref Range: 4.60-5.80 X10*6/uL) 4.68 (Ref Range: 4.60-5.80 X10*6/uL) Hemoglobin 13.9 L (Ref Range: 14.0-18.0 g/dl) 14.3 (Ref Range: 14.0-18.0 g/dl) 14.7 (Ref Range: 14.0-18.0 g/dl) Hematocrit 39.7 L (Ref Range: 42.0-52.0 %) 41.9 L (Ref Range: 42.0-52.0 %) 42.5 (Ref Range: 42.0-52.0 %) Mean Corpuscular Volume 90.2 (Ref Range: 80.0-98.0 fL) 91.9 (Ref Range: 80.0-98.0 fL) 90.8 (Ref Range: 80.0-98.0 fL) Mean Corpuscular Hemoglobin 31.6 (Ref Range: 27.0-33.0 pg) 31.4 (Ref Range: 27.0-33.0 pg) 31.4 (Ref Range: 27.0-33.0 pg) Mean Corpuscular HGB Conc 35.0 (Ref Range: 31.0-36.0 g/dl) 34.1 (Ref Range: 31.0-36.0 g/dl) 34.6 (Ref Range: 31.0-36.0 g/dl) Red Cell Distribution Width 12.9 (Ref Range: 11.0-16.0 %) 12.7 (Ref Range: 11.0-16.0 %) 12.9 (Ref Range: 11.0-16.0 %) Platelet Count 173 (Ref Range: 160-400 X10*3/uL) 170 (Ref Range: 160-400 X10*3/uL) 180 (Ref Range: 160-400 X10*3/uL) Mean Platelet Volume 10.7 (Ref Range: 9.4-12.4 fL) 10.6 (Ref Range: 9.4-12.4 fL) 10.6 (Ref Range: 9.4-12.4 fL) Neutrophils Percent Auto 62.9 (Ref Range: 45-73 %) 58.9 (Ref Range: 45-73 %) 56.3 (Ref Range: 45-73 %) Imm Gran Pct Auto 0.3 (Ref Range: 0.0-0.4 %) 0.2 (Ref Range: 0.0-0.4 %) 0.2 (Ref Range: 0.0-0.4 %) Lymphocytes Percent Auto 28.9 (Ref Range: 20-40 %) 28.9 (Ref Range: 20-40 %) 33.6 (Ref Range: 20-40 %) Monocytes Percent Auto 5.1 (Ref Range: 2-11 %) 7.1 (Ref Range: 2-11 %) 5.6 (Ref Range: 2-11 %) Eosinophils Percent Auto 2.3 (Ref Range: 0-4 %) 4.5 H (Ref Range: 0-4 %) 3.9 (Ref Range: 0-4 %) Basophils Percent Auto 0.5 (Ref Range: 0-2 %) 0.4 (Ref Range: 0-2 %) 0.4 (Ref Range: 0-2 %) NRBC Pct Auto 0.0 (Ref Range: 0.0-0.2 /100WBC) 0.0 (Ref Range: 0.0-0.2 /100WBC) 0.0 (Ref Range: 0.0-0.2 /100WBC) Neutrophils Absolute Auto 4.0 (Ref Range: 2.0-8.3 x10*3/uL) 3.2 (Ref Range: 2.0-8.3 x10*3/uL) 3.0 (Ref Range: 2.0-8.3 x10*3/uL) Imm Gran Abs Auto 0.02 (Ref Range: 0.00-0.03 X10*3/uL) 0.01 (Ref Range: 0.00-0.03 X10*3/uL) 0.01 (Ref Range: 0.00-0.03 X10*3/uL) Lymphocytes Absolute Auto 1.9 (Ref Range: 1.2-4.9 X10*3/uL) 1.6 (Ref Range: 1.2-4.9 X10*3/uL) 1.8 (Ref Range: 1.2-4.9 X10*3/uL) Monocytes Absolute Auto 0.3 (Ref Range: 0.1-1.2 X10*3/uL) 0.4 (Ref Range: 0.1-1.2 X10*3/uL) 0.3 (Ref Range: 0.1-1.2 X10*3/uL) Eosinophils Absolute Auto 0.2 (Ref Range: 0.0-0.4 X10*3/uL) 0.3 (Ref Range: 0.0-0.4 X10*3/uL) 0.2 (Ref Range: 0.0-0.4 X10*3/uL) Basophils Absolute Auto 0.0 (Ref Range: 0.0-0.2 X10*3/uL) 0.0 (Ref Range: 0.0-0.2 X10*3/uL) 0.0 (Ref Range: 0.0-0.2 X10*3/uL) NRBC Abs Auto 0.000 (Ref Range: 0.0-0.012 X10*3/uL) 0.000 (Ref Range: 0.0-0.012 X10*3/uL) 0.000 (Ref Range: 0.0-0.012 X10*3/uL) ???Lab:Prothrombin Time INR (Order Date - 11/12/2024) (Collection Date & Time - 11/12/2024 01:07 PM)?ValueReference Range?Prothrombin Time12.1 10.9-12.4 - SEC?INTERNATIONAL NORM RATIO1.10.9-1.1 - ???Lab:Partial Thromboplastin Time (Order Date - 11/12/2024) (Collection Date & Time - 11/12/2024 01:07 PM)?ValueReference Range?Partial Thromboplastin Time34.9H26.7-34.1 - SEC * Lab:Urinalysis * Collection Date 11/12/2024 02/11/2020 Collection Time 01:03 AM Order Date 11/12/2024 02/11/2020 Color Urine Yellow YELLOW Appearance Urine Clear CLEAR PH 5.5 (Ref Range: 5.0-9.0) 7.0 (Ref Range: 5.0-8.0) Glucose Urine UA Negative (Ref Range: Negative mg/dL) NEG (Ref Range: NEG MG/DL) Urine Blood Negative (Ref Range: Negative) NEG (Ref Range: NEG) Specific [place] - Urine 1.015 (Ref Range: 1.005-1.025) 1.010 (Ref Range: 1.005-1.025) Urine Protein Negative (Ref Range: Neg-Trace mg/dL) NEG (Ref Range: NEG-TRACE MG/DL) Urine Ketones Negative (Ref Range: Negative mg/dL) NEG (Ref Range: NEG MG/DL) Nitrite Urine Negative (Ref Range: Negative) NEG (Ref Range: NEG) Leukocyte Esterase Urine Negative (Ref Range: Negative) NEG (Ref Range: NEG) * Examination: G eneral Examination: GENERAL APPEARANCE: p leasant, well nourished, well developed, in no acute distress, calm and relaxed: overweight: man. HEAD: a traumatic, normocephalic. EYES: e jennifer, perrla, anicteric, conjugate. EARS: M ild hearing loss. NOSE: s eptum intact. ORAL [...] sounds normal, no ascites, no organomegaly, no mass: overweight. RECTAL EXAM: n ot examined. MUSCULOSKELETAL: e xtremities unremarkable, no clubbing, cyanosis or edema. PERIPHERAL PULSES: n ormal. NEUROLOGIC: a lert and oriented, cranial nerves 2-12 grossly intact, deep tendon reflexes 2+ symmetrical, motor strength normal upper and lower extremities, sensory exam intact. PSYCH: a lert, oriented. Assessment: * Assessment: 1. G santi hematuria - R31.0 (Primary) N otes :He had one episode of clots in his urine. He passed 2 small clots. He has had no renal colic. His urine has been normal yellow in color. Bladder ultrasound is pending. 2 . O verweight - E66.3 N otes :His body mass index is 26. We discussed her weight loss strategy. I recommended losing one half of a pound per week to regular exercise and a diet restricted in fat calories and sodium. 3 . F ormer smoker - Z87.891 N otes :He is highly motivated not to smoke. We discussed strategies for maintenance of abstinence in times of stress and illness. 4 . B PH (benign prostatic hyperplasia) - N40.0 N otes :He says he rises from sleep about once a night sometimes twice depending upon fluid intake. We reviewed lifestyle modifications he could make to reduce nocturia. 5 . H yperlipidemia - E78.5 N otes :His lipids have been stable. A fasting lipid profile has been ordered prior to his next visit. 6 . E rectile dysfunction - N52.9 N otes :This problem has been addressed. This medication was effective. 7 . H earing loss, unspecified hearing loss type, unspecified laterality - H91.90 N otes :His hearing loss is unchanged. Declined an offer referral to ENT for audiology. Plan: * Treatment: 2. B PH (benign prostatic hyperplasia) Referral To:Mohan Orona ([place]) Urology Reason:Evaluate and Treat Passed 2 blood clots in urine 3. E rectile dysfunction Referral To:Mohan Orona ([place]) Urology Reason:Evaluate and Treat Passed 2 blood clots in urine 4. O thers Continue EPINEPHrine Solution Auto-injector, 0.3 [...] urged to quit. 1 * Follow Up: 3 Weeks (Reason: Office visit) * Images: * Sign off status: Completed true * Provider: Alfonso Hightower MD Date: Generated for Noa huang/Juan/Jaren on: 03/03/2024 02:51 PM EST History and Physical Notes * HPI (History of Present Illness) Category Sub-Category Detail Notes COVID-19 Screening Questions Have you had any new onset fever, chills, cough, congestion, sore throat, shortness of breath, muscle aches?: No Examination Category Sub-Category Detail Notes General Examination GENERAL APPEARANCE: pleasant , well nourished, well developed, in no acute distress, calm and relaxed: overweight: man HEAD: atraumatic, normocep halic EYES: eomi, perrla, anicte dale, conjugate EARS: Mild hearing loss NOSE: septum intact NECK/THYROID: no jugular venous di stention, no carotid bruit, thyroid normal HEART: no clicks, gallops, murmurs, or rubs, regular rhythm, S1, S2 normal, no s3, or vascular bruits LUNGS: clear to auscultatio n ABDOMEN: bowel sounds normal, no ascites, no organomegaly, no mass: overweight NEUROLOGIC: alert and oriented, cranial nerves [...] Referral Date Referring Provider Referred Provider Not es 11/17/2024 Earl Hightower Alexander , (Lillie) Evaluate and Treat Passed 2 blood clots in urine
--- NOTE | ~2025-01-01 | US_ITS ---
EXAMINATION: US RETROPERITONEAL COMPLETE (RENAL) CLINICAL INFORMATION: Gross hematuria. COMPARISON: None available. TECHNIQUE: Real-time imaging of the kidneys and bladder. FINDINGS: RIGHT KIDNEY: 11.1 x 4.8 x 5.0 cm (SAG x AP x TRV). The kidney is normal in size, contour, and echogenicity. Renal cortical thickness is normal. No calculi or focal parenchymal lesions. No hydronephrosis. LEFT KIDNEY: 10.5 x 6.1 x 5.3 cm (SAG x AP x TRV). The kidney is normal in size, contour, and echogenicity. Renal cortical thickness is normal. No calculi or focal parenchymal lesions. No hydronephrosis. BLADDER: Well distended and normal. Bilateral ureteral jets are demonstrated. Prevoid bladder volume is 183 mL. Postvoid bladder volume is approximately 7 mL. The estimated prostate volume is 29 mL. US/US retroperitoneal comp IMPRESSION: 1. Normal kidneys and bladder. No significant postvoid residual. 2. Mild prostate enlargement. Electronically signed by: Lobo Shields MD 01/01/2025 04:19 PM EST
--- OUTSIDE RECORDS SUMMARY | 2025-01-01 14:51 | XMS_ITS | Clinical Summary ---
Author Organization [facility] Address [address] [place] [phone] Phone Care Team Providers Care Custom Tailor Name Role Phone Earl Hightower MD Primary Care Provider [phone] Social History Tobacco Use Types Packs/Day Years [...] & B MEDICARE PART A & B Member Subscriber Plan / Payer ( fective 2018-Present) Name:James Alberto Member ID:[id number] Relation to Subscriber:Self Name:James Alberto Subscriber ID:[id number] Payer ID:[id number] Group ID:Not on file Type:Medicare Address: [employer] [address] [place] [address] MEDICARE PART A & B MEDICARE PPO BLUE REPLACEMENT MEDICARE PART A & B Care Teams Custom Tailor Relationship Specialty Start Date End Date Earl Highotwer MD [address] [place] [address] [place] [address] PCP - General Medical Oncology 07/11/23 Additional Source Comments The information contained in this document represents components of the legal health record. It is not the complete legal health record.[facility]
--- OUTSIDE RECORDS SUMMARY | 2025-01-01 14:51 | XMS_ITS | Data Portability ---
Author Organization [place] - [facility], All[facility] Address [address] [address] Assessment Encounter Date Assessment Date Assessment LastModified [...] follow-up audiogram in 2 to 3 years [id number] Not available 07/02/2023 15:21:50 Plan of Treatment [...] Organization Details Recorded Time Dizziness and giddiness [id number] Active 2018 Dizziness and giddiness ; Note: Date Diagnosed : 03/26/2018 2:58 PM (R42) Not Available [facility] 4 02:39:49 Bilateral tinnitus 43067370028 02 Active 2018 Tinnitus, bilateral ; Note: Date Diagnosed : 03/26/2018 2:58 PM (H93.13) Not Available [facility] 4 02:39:55 Benign paroxysma l positiona l vertigo 037255810 Active 2018 Benign paroxysma l vertigo, unspecifi ed ear; Note: Date Diagnosed : 03/26/2018 2:58 PM (H81.10) Not Available [facility] 4 02:39:56 Sensorine ural hearing loss of bilateral ears 936706464 Active 2023 PAOLA ERNANDEZ, [address], [address] , [facility] - [facility] 4 14:56:17 Problem Notes None recorded. Procedures Surgical History Date Name Laterality Status Provider Name and Address Organization Details Recorded Time 4 Comp Audio with Tymps - 89818 & 82714 completed PAOLA ERNANDEZ, [address] [address], [place], [address], [place] - [facility] 07/02/2023 14:56:11 procedure on nose completed Cecilia Reveles [place] - [facility] 07/02/2023 15:07:22 procedure on elbow completed Cecilia Reveles [place] - [facility] 07/02/2023 15:07:29 Imaging Results None recorded. Procedure [...] Updated DateTime 07/02/2023 181.61 cm 25.4 kg/m2 31274.59 g Cecilia Reveles [place] - [facility] 07/02/2023 15:04:21 Social History None recorded. Functional Status None recorded. Mental Status None recorded. Family History Nothing Reported. Medical History No medical history recorded. Past Encounters Encounter ID Performer Location Encounter Start Date Encounter Closed Date Diagnosis/Indication Diagnosis SNOMED-CT Code Diagnosis ICD10 Code Diagnosis IMO Codes Diagnosis Note [id number] GARO SORENSEN MD [facility] [address] [address] 07/02/2023 13:58:16 07/02/2023 15:19:24 Bilateral tinnitus 1543469962 102 H93.13 Today we discussed the pathophysi [...] Sensorineu ral hearing loss of bilateral ears 988829570 H90.3 Audiologic al evaluation results: Right ear: Normal sloping at 3khz to a mild to moderate SNHL with excellent speech discrimina tion. Left ear: Normal sloping at 3khz to a mild to moderate SNHL with excellent speech discrimina tion. Tympanomet ry: Right Ear:Type As Left Ear:Type As 1046 TIM TURNER [facility] [address] [address] 07/02/2023 14:55:07 07/08/2023 18:01:22 Sensorineural hearing loss of bilateral ears 142678200 H90.3 Audiologic al evaluation results: Right ear: [...] ID Guarantor Name 07/02/2023 1 [place]IC[place] B-[place]: [employer] James Alberto [id number] James Alberto 10/01/2023 2 [place] (MEDICARE REPLACEMENT PPO) [id number] James Alberto [id number] James Alberto Notes Date Note Type [...] noticeable in quiet environments. GARO SORENSEN MD [address] [place] [address], [id number], [facility] - [facility] 07/02/2023 15:22:28
--- OUTSIDE RECORDS SUMMARY | 2025-01-01 14:52 | XMS_ITS | Patient Health Record ---
Author Organization Earl Hightower III, MD Address [address] [place] [address] [place] [address] Care Team Providers Care Director Data Name Role Phone Dr. Earl Hightower III Primary Care Provider [phone] Allergies Allergen (clinical drug ingredient) Drug/Non Drug [...] Negative Negative - PSA Free and Total Reviewed date:11/17/2024 02:38:21 PM Interpretation: Performing Lab:[facility], [address] [place] [phone] Notes/Report: Prostate Specific Ag Total 2.6 < [...] 19 < or = 30 93 9 (3)[place]iaona et al.:ALMA 277: [phone] (1996) (4)Catalona et al.:ALMA 279: [phone] (1997) (x)These estimates vary with age, ethnicity, [...] mind. PSA was performed using the Lyubov [place] Immunoassay method. Values obtained from different assay methods cannot be used interchangeably. PSA levels, regardless of value, should not be interpreted as absolute evidence of the presence or absence of disease. THIS TEST WAS PERFORMED AT: [facility] [address] [address] ADE ROBINS MD Free Prostate Spec Ag 0.8 Urine Culture Reviewed date:11/17/2024 02:38:21 PM Interpretation: Performing Lab:[address] [phone] Notes/Report: Urine Culture No growth. Urine Culture Reviewed date:11/17/2024 02:38:21 PM Interpretation: Performing Lab:[facility], [address] [place] [phone] Notes/Report: Urine Culture No growth. Complete Blood Count Auto Di ff Reviewed date:05/18/2024 02:16:33 PM Interpretation: Performing Lab:[facility], [address] [place] [phone] Notes/Report: White Blood Count 5.5 4.8-10.8 X10*3/uL [...] NRBC Abs Auto 0.000 0.0-0.012 X10*3/uL Comprehensive [place]. Panel Fa st Reviewed date:05/18/2024 02:16:33 PM Interpretation: Performing Lab:[facility], [address] [place] [phone] Notes/Report: Sodium 139 135-145 mmol/L Potassium 4.1 [...] Reviewed date:05/18/2024 02:16:33 PM Interpretation: Performing Lab:[address] [address] Notes/Report: Triglycerides 164 <150 mg/dL Desirable Triglyceride: [...] Reviewed date:05/18/2024 02:16:33 PM Interpretation: Performing Lab:[address] [phone] Notes/Report: Prostate Specific Antigen 2.61 <0.05-4.0 ng/mL PSA methodology: Brown Alinity i Chemiluminescent Microparticle Immunoassay (CMIA) Urinalysis and Microscopic Reviewed date:11/17/2024 02:38:21 PM Interpretation: Performing Lab:[facility], [address] [place] [phone] Notes/Report: Color Urine Yellow Appearance Urine Clear PH 6.0 5.0-9.0 Glucose Urine UA Negative Negative mg/dL Urine Blood Negative Negative Specific [place] - Urine 1.015 1.005-1.025 Urine Protein Negative Neg-Trace mg/dL Urine Ketones Negative Negative mg/dL Nitrite Urine Negative Negative Leukocyte Esterase Urine Trace Negative RBC Urine 0-2 0-2 /HPF WBC Urine 0-5 0-5 /HPF Squamous Epithelial Cell Urine 0-2 0-2 /HPF Bacteria Urine None Seen None Seen Hyaline Casts Urine 0-2 0-2 /LPF Complete Blood Count Auto Di ff Reviewed date:11/17/2024 02:38:21 PM Interpretation: Performing Lab:[facility], [address] [place] [phone] Notes/Report: White Blood Count 6.4 4.8-10.8 X10*3/uL [...] Auto 0.000 0.0-0.012 X10*3/uL Prothrombin Time INR Reviewed date:11/17/2024 02:38:21 PM Interpretation: Performing Lab:[address] [phone] Notes/Report: Prothrombin Time 12.1 10.9-12.4 SEC [employer] [...] valves: 2.5 - 3.5 Partial Thromboplastin Time Reviewed date:11/17/2024 02:38:21 PM Interpretation: Performing Lab:[address] [address] Notes/Report: Partial Thromboplastin Time 34.9 26.7-34.1 SEC Urinalysis Reviewed date:11/17/2024 02:38:21 PM Interpretation: Performing Lab:[address] [address] Notes/Report: Color Urine Yellow Appearance Urine Clear PH 5.5 5.0-9.0 Glucose Urine UA Negative Negative mg/dL Urine Blood Negative Negative Specific [place] - Urine 1.015 1.005-1.025 Urine Protein Negative Neg-Trace mg/dL Urine Ketones Negative Negative mg/dL Nitrite Urine Negative Negative Leukocyte Esterase Urine Negative Negative Reason For Referral Reason Consult and Treat Diagnosis 1 Right knee pain (M25 .561) Referral Organization Earl Hightower III, MD Referring Provider First Name Earl Referring Provider Last Name Katja Referring Provider Speciality Internal M edicine Referred Provider [facility] er, Orthopedic Surgeons Referred Provider Specialty Orthopedic S urgery General Notes D, Leonor 06/08/2024 03:38:06 PM > Referral faxed with Progress note, D, 07/08/2024 10:59:17 AM > Spoke with [facility] Ortho stated the patient declined to schedule. Referral will be closed. Referral Priority Routine Reason Evaluate and Treat Passed 2 blood [...] Referral Priority Routine Referral Appointment Date 03/11/2025 Medications Medication SIG (Take, Route, Frequency, Duration) [...] Problem Status W/U Status Risk Notes Problem 4717155 Former smoker (Z87.891) Active confirmed He is highly motivated not to smoke. We discussed strategies for maintenance of abstinence in times of stress and illness. Problem 78942930 Hyperlipidemia (E78.5) Active confirmed His lipids have been stable. A fasting lipid profile has been ordered prior to his next visit. Problem 788376883 Overweight (E66.3) Active confirmed His body mass index is 26. We discussed her weight loss strategy. I recommended losing one half of a pound per week to regular exercise and a diet restricted in fat calories and sodium. Problem Gross hematuria (310495186) Gross hematuria (R31.0) Active confirmed He had one episode of clots in his urine. He passed 2 small clots. He has had no renal colic. His urine has been normal yellow in color. Bladder ultrasound is pending. Problem [id number] BPH (benign prostatic hyperplasia) (N40.0) Active confirmed He says he rises from sleep about once a night sometimes twice depending upon fluid intake. We reviewed lifestyle modifications he could make to reduce nocturia. Problem 441532683 Erectile dysfunction (N52.9) Active confirmed This problem has been addressed. This medication was effective. Problem [id number] Acute pain of right knee (M25.561) Active confirmed He has had pain with use in his right knee for a week. It does not appear to be gout. There is a small effusion, but no erythema. There is mild to moderate pain to weighttbearing. He was referred to orthopedics and imaging was ordered. Problem 24485810 Hernia (K46.9) Active confirmed He has seen a surgeon about her running wall hernia. The he has decided not to have the repair done at this time. Problem Hearing loss (44971036) Hearing loss, unspecified hearing loss type, unspecified laterality (H91.90) Active confirmed His hearing loss is unchanged. Declined an offer referral to ENT for audiology. Vital Signs Heart Rate 65 /min 11/17/2024 Temperature 98.4 degrees Fahrenheit 11/17/2024 Blood pressure diastolic 82 mm Hg 11/17/2024 Height 69.75 in 11/17/2024 Blood pressure systolic 129 mm Hg 11/17/2024 Weight 180 lbs 11/17/2024 BMI 26.01 kg/m2 11/17/2024 Encounters Encounter Location Date Provider Diagnosis Earl Hightower III, MD [address] [place] [address] [address] [place] [phone] 05/18/2024 Earl Hightower Acute pain of right knee M25.561 ; Hearing loss, unspecified hearing loss type, unspecified laterality H91.90 ; Hernia K46.9 ; Hyperlipidemia E78.5 ; Overweight E66.3 and Former smoker Z87.891 Earl Hightower III, MD [address] [place] [address] [address] [place] [address] 11/17/2024 Earl Hightower Gross hematuria R31. 0 ; Overweight E66.3 ; Former smoker Z87.891 ; BPH (benign prostatic hyperplasia) N40.0 ; Hyperlipidemia E78.5 ; Erectile dysfunction N52.9 and Hearing loss, unspecified hearing loss type, unspecified laterality H91.90 Earl Hightower III, MD [address] [place] [address] [address] [place] [address] 05/14/2024 Earl Hightower III, MD [address] [place] [address] [address] [place] [phone] 07/22/2024 Earl Hightower UTI symptoms R39.9 a nd BPH (benign prostatic hyperplasia) N40.0 Earl Hightower III, MD [address] [place] [address] [address] [place] [address] 11/12/2024 Earl Hightower Hyperlipidemia E78.5 ; Hematuria, [...] an offer referral to ENT for audiology. 11/17/2024 Overweight (ICD-10 - E66.3) His body mass index is 26. We discussed her weight loss strategy. I recommended losing one half of a pound per week to regular exercise and a diet restricted in fat calories and sodium. 11/17/2024 Gross hematuria (ICD-10 - R31.0) He had one episode of clots in his urine. He passed 2 small clots. He has had no renal colic. His urine has been normal yellow in color. Bladder ultrasound is pending. 07/22/2024 UTI symptoms (ICD-10 - R39.9) 11/12/2024 Hyperlipidemia (ICD-10 - E78.5) 05/18/2024 Hernia (ICD-10 - K46.9) He has seen a surgeon about her running wall hernia. The he has decided not to have the repair done at this time. 11/17/2024 Former smoker (ICD-1 0 - Z87.891) He is highly motivated not to smoke. We discussed strategies for maintenance of abstinence in times of stress and illness. 07/22/2024 BPH (benign prostati c hyperplasia) (ICD-10 - N40.0) 11/12/2024 Hematuria, unspecified (ICD-10 - R31.9) 05/18/2024 Hyperlipidemia (ICD-10 - E78.5) His lipids have been stable. A fasting lipid profile has been ordered prior to his next visit. 11/17/2024 BPH (benign prostati c hyperplasia) (ICD-10 - N40.0) He says he rises from sleep about once a night sometimes twice depending upon fluid intake. We reviewed lifestyle modifications he could make to reduce nocturia. 11/12/2024 Gross hematuria (ICD-10 - R31.0) 05/18/2024 Overweight (ICD-10 - E66.3) His body mass index is 26. We discussed her weight loss strategy. I recommended losing one half of a pound per week to regular exercise and a diet restricted in fat calories and sodium. 11/17/2024 Hyperlipidemia (ICD-10 - E78.5) His lipids have been stable. A fasting lipid profile has been ordered prior to his next visit. 11/12/2024 UTI symptoms (ICD-10 - R39.9) 05/18/2024 Former smoker (ICD-1 0 - Z87.891) He is highly motivated not to smoke. We discussed strategies for maintenance of abstinence in times of stress and illness. 11/17/2024 Erectile dysfunction (ICD-10 - N52.9) This problem has been addressed. This medication was effective. 11/17/2024 Hearing loss, unspecified hearing loss type, unspecified laterality (ICD-10 - H91.90) His hearing loss is unchanged. Declined an offer referral to ENT for audiology. Plan Of Treatment Pending Test Test Name [...] 0 07/05/2023 URINALYSIS (UA) 11/12/2024 URINALYSIS (UA) 07/22/2024 URINALYSIS (UA) 02/11/2020 ETTA-GASPAR VIRUS PROFILE (EBV) 019 URINE CULTURE 02/11/2020 US URINARY BLADDER 11/17/2024 VITAMIN D 25-OH TOTAL 03/08/2020 CBC WITH AUTO DIFF 05/17/2023 Lipid Panel 11/02/2021 Lipid Panel 04/18/2021 Lipid Panel 11/19/2023 Lipid Panel 01/17/2021 Throat Culture 12/26/2022 US renal BI 11/17/2024 H Pylori Breath Test 07/23/2023 Next Appt Details Provider Name:Earl Vizcarrane , 05/21/2025 10:30:00 AM, [address] [place] [address] [address]INAH Gladys, [place], [address], Insurance Providers Payer Name Payer Address Payer Phone Subscriber Number Group Number Insured Name Patient Relationship to Insured Coverage Start Date Coverage End Date [facility] [address] [place], [place] [id number] [phone] [id number] James Alberto Self - patient is the insured MEDICARE NGS [address] [place] [address] [id number] James Alberto Self - patient is the insured Medical (General) History Medical History History ICD Code fracture right ulnar fracture penis December 2015, untreated erectile dysfunction skin lesion anterior left shoulder former smoker history of lyme disease 2012 Surgical History Surgery Date(Month/Year) penile fracture 2016 fracture right ulnar 1979' both elbow surgery 1985, 1978 Deviated septum 1985 Hospitalization History Reason Date(Month/Year) No history
== END 2025-01-01 14:33 | disposition home or self-care (01) ==
LOC: HO.US 14:32
PROVIDERS: PCP Internal Medicine Medical Oncology; Visit Provider Internal Medicine Medical Oncology
DX: R31.0 Gross hematuria (principal)
CPT/HCPCS: 76770

== ENCOUNTER → 2025-01-01 14:44 | Outpatient (BNV) | payer MEDICARE, SELFPAY | PROVIDERS: PCP Internal Medicine Medical Oncology; Visit Provider Radiology Diagnostic Radiology | DX: N40.0 Benign prostatic hyperplasia without lower urinary tract symptoms (principal) | CPT/HCPCS: 76770 ==